=== PATIENT | female | born 1930 | race Caucasian/White ===

== ENCOUNTER 2016-07-19 10:22 | Inpatient (IN) | payer OTHER, MEDICARE ==
[~2016-07-19] VITALS: Ht 162.6 cm; Wt 68.0 kg
[~2016-07-19 10:22] MED LIST: ATOR40TA PO; ECASA PO; MOBI7.5T PO; TIZA4 PO; TYLE3 PO
[2016-07-19 10:26] VITALS: BP 170/77; PULSE 74; RESP 20; TEMP 97.8; O2SAT 91
[2016-07-19] MEDS ORDERED: SODIUM CHLORIDE 0.9% FLUSH 5 ML FLUSH IVF PRN (11:00)
[2016-07-19 11:04] VITALS: BP 140/90; PULSE 68; RESP 18; O2SAT 97
[2016-07-19] MEDS ORDERED: LIPI40TA PO (11:13)
[2016-07-19] MEDS ORDERED: COUM5TAB PO (11:14)
[2016-07-19] MEDS ORDERED: LISI-515 PO (11:15)
--- NOTE | 2016-07-19 11:15 | PD ---
HPI Chief Complaint: Neuro Symptoms/ Deficits Time Seen by Provider: 11:08 Travel History International Travel<30 days: No Contact w/Intl Traveler<30days: No Traveled to known affect area: No History of Present Illness HPI Patient comes emergency Department at the direction of her neurologist Dr. Nieves for admission to the hospital and started on a heparin drip. Patient' s daughters at the bedside reports that patient was discharged from the hospital on Saturday after having a stroke last Saturday. Daughter reports yesterday the patient had some slurring speech that lasted approximately 30 minutes and resolved. Patient had a scheduled MRI of the brain done yesterday as outpatient for follow-up from previous stroke and was found to have a new area that was infarcted. Patient follow-up with Dr. Nieves today and was told to come back to the hospital for admission who started on heparin. Patient denies any pain anywhere. Denies any headache, chest pain shortness of breath abdominal pain, fevers, loss or change in bowel or bladder. Patient reports she still has some left-sided weakness from previous stroke has been walking with a cane. Denies any new sensory deficits, increased weakness, or weakness anywhere else. PFSH Past Medical History Hx Anticoagulant Therapy: Yes Autoimmune Disease: No Blood Disorders: No Cancer: Yes (breast) Cardiovascular Problems: No High Cholesterol: Yes Chemotherapy: Yes (1979 ONE DOSE) Cerebrovascular Accident: Yes Endocrine: No Genitourinary: No Musculoskeletal: No Neurologic: Yes Psychiatric: No Respiratory: No ?: Not Menopausal: Yes Past Surgical History AICD: No Arteriovenous Shunt: No Genitourinary Surgery: No Insulin Pump: No Joint Replacement: No Pacemaker: No Tonsillectomy: Yes Other Surgery: Yes (masectomy left) Social History Alcohol Use: Yes (rare occasions) Tobacco Use: No Substance Use: No Allergies-Medications (Allergen,Severity, Reaction): Coded Allergies: Iodine (Verified Allergy, Severe, Swelling, 07/19/16) Reported Meds & Prescriptions Reported Meds & Active Scripts Active Reported Lisinopril 20 Mg Tab 20 Mg PO DAILY Coumadin (Warfarin) 5 Mg Tab 5 Mg PO DAILY Lipitor (Atorvastatin Calcium) 40 Mg Tab 40 Mg PO HS Review of Systems Except as stated in HPI: all other systems reviewed are Neg Physical Exam Narrative GENERAL: Well-developed, well nourished, in no acute distress, and non-ill appearing. SKIN: Warm and dry. HEAD: Atraumatic. Normocephalic. EYES: Pupils equal and round. EOMI. No scleral icterus. No injection or drainage. ENT: No nasal bleeding or discharge. Mucous membranes pink and moist. NECK: Trachea midline. Supple. No nuclear rigidity. CARDIOVASCULAR: Regular rate and rhythm. No murmur appreciated. RESPIRATORY: No accessory muscle use. No respiratory distress. Clear to auscultation. Breath sounds equal bilaterally. MUSCULOSKELETAL: No obvious deformities. No clubbing. No cyanosis. No edema. Full range of motion. Slight decreased strength noted in left upper and lower extremity compared to right. Slight drooping of the left corner of the mouth compared to the right. NEUROLOGICAL: Awake and alert. No obvious cranial nerve deficits. Motor grossly within normal limits. Normal speech. PSYCHIATRIC: Appropriate mood and affect; insight and judgment normal. Data Data Last Documented VS Vital Signs Date Time Temp Pulse Resp B/P Pulse Ox O2 Delivery O2 Flow Rate FiO2 07/19/16 11:04 68 18 140/90 97 Room Air 07/19/16 10:26 97.8 Orders Complete Blood Count With Diff (07/19/16 10:59) Comprehensive Metabolic Panel (07/19/16 10:59) Prothrombin Time / Inr (Pt) (07/19/16 10:59) Act Partial Throm Time (Ptt) (07/19/16 10:59) Ecg Monitoring (07/19/16 10:59) Iv Access Insert/Monitor (07/19/16 10:59) Oximetry (07/19/16 10:59) Sodium Chloride 0.9% Flush (Ns Flush) (07/19/16 11:00) Heparin Infusion CLAUDIO.Q1H (07/19/16 11:52) Heparin-D5w Inj (Heparin-D5w Inj) (07/19/16 12:00) Heparin-D5w Inj (Heparin-D5w Inj) (07/19/16 13:15) Admit Order (Ed Use Only) (07/19/16 13:32) Labs Laboratory Tests Test 07/19/16 11:20 White Blood Count 6.6 TH/MM3 Red Blood Count 4.67 MIL/MM3 Hemoglobin 14.7 GM/DL Hematocrit 42.6 % Mean Corpuscular Volume 91.3 FL Mean Corpuscular Hemoglobin 31.5 PG Mean Corpuscular Hemoglobin 34.5 % Concent Red Cell Distribution Width 12.5 % Platelet Count 298 TH/MM3 Mean Platelet Volume 7.9 FL Neutrophils (%) (Auto) 55.3 % Lymphocytes (%) (Auto) 33.8 % Monocytes (%) (Auto) 8.4 % Eosinophils (%) (Auto) 1.9 % Basophils (%) (Auto) 0.6 % Neutrophils # (Auto) 3.7 TH/MM3 Lymphocytes # (Auto) 2.2 TH/MM3 Monocytes # (Auto) 0.6 TH/MM3 Eosinophils # (Auto) 0.1 TH/MM3 Basophils # (Auto) 0.0 TH/MM3 CBC Comment DIFF FINAL Differential Comment Prothrombin Time 10.9 SEC Prothromb Time International 1.0 RATIO Ratio Activated Partial 24.3 SEC Thromboplast Time Sodium Level 141 MEQ/L Potassium Level 4.2 MEQ/L Chloride Level 109 MEQ/L Carbon Dioxide Level 22.4 MEQ/L Anion Gap 10 MEQ/L Blood Urea Nitrogen 28 MG/DL Creatinine 0.94 MG/DL Estimat Glomerular Filtration 57 ML/MIN Rate Random Glucose 93 MG/DL Calcium Level 8.6 MG/DL Total Bilirubin 1.3 MG/DL Aspartate Amino Transf 18 U/L (AST/SGOT) Alanine Aminotransferase 26 U/L (ALT/SGPT) Alkaline Phosphatase 57 U/L Total Protein 6.9 GM/DL Albumin 3.9 GM/DL [facility] Medical Decision Making Medical Screen Exam Complete: Yes Emergency Medical Condition: Yes Differential Diagnosis CVA, TIA, electrolyte abnormality, other Narrative Course Patient seen and examined. Labs were obtained and reviewed. Discussed patient with Dr. Patten, who is agreeable with plan of care and disposition. Discussed all findings with patient and her daughter, who is agreeable for admission. All questions were answered. Physician Communication Physician Communication [address] Nieves. He previously spoke with the RN. Wants the patient admitted to the hospitalist and continued on heparin drip, given additional dose of 5 mg Coumadin tonight, every morning INR is, DC heparin for INR greater than 1.9, and hold the Coumadin for greater than 2.7. [address] Carolina, who is agreeable to admit the patient. Diagnosis Primary Impression: CVA (cerebral vascular accident) Qualified Code: I63.9 - Cerebrovascular accident (CVA), unspecified mechanism Admitting Information Admitting Physician Requests: Admit Condition: Stable Rojas Calhoun Jul 19, 2016 11:15
[2016-07-19 11:37] LABS: AUTOMATED NEUTROPHIL # 3.7 TH/MM3 (1.8-7.7); BASOPHIL % 0.6 % (0.0-2.0); EOSINOPHIL # 0.1 TH/MM3 (0-0.4); EOSINOPHIL % 1.9 % (0.0-4.0); HEMATOCRIT 42.6 % (35.0-46.0); HEMO FLAGS DIFF FINAL; LYMPH % 33.8 % (9.0-44.0); LYMPHOCYTE # 2.2 TH/MM3 (1.0-4.8); MEAN CELL VOLUME 91.3 FL (80.0-100.0); MEAN CORPUSCULAR HEMOGLOBIN 31.5 PG (27.0-34.0); MEAN CORPUSCULAR HGB CONC 34.5 % (32.0-36.0); MONO % 8.4 % (0.0-8.0); NEUT % 55.3 % (16.0-70.0); PLATELET COUNT 298 TH/MM3 (150-450); RED BLOOD COUNT 4.67 MIL/MM3 (4.00-5.30); RED CELL DISTRIBUTION WIDTH 12.5 % (11.6-17.2); WHITE BLOOD COUNT 6.6 TH/MM3 (4.0-11.0)
[2016-07-19 11:47] LABS: APTT (PATIENT) 24.3 SEC (24.3-30.1); PROTHROMBIN TIME - PATIENT 10.9 SEC (9.8-11.6)
[2016-07-19 11:49] LABS: ANION GAP 10 MEQ/L (5-15); AST (GOT) 18 U/L (15-37); BICARBONATE 22.4 MEQ/L (21.0-32.0); BLOOD UREA NITROGEN 28 MG/DL (7-18); CHLORIDE 109 MEQ/L (98-107); GLOMERULAR FILTRATION RATE 57 ML/MIN (>89); POTASSIUM 4.2 MEQ/L (3.5-5.1); SODIUM (NA) 141 MEQ/L (136-145)
[2016-07-19 11:52] LABS: ALKALINE PHOSPHATASE 57 U/L (45-117); ALT (GPT) 26 U/L (10-53); TOTAL BILIRUBIN ADULT 1.3 MG/DL (0.2-1.0)
[2016-07-19] MEDS ORDERED: HEPARIN-D5W INJ 250 ML IV SCH (12:00)
[2016-07-19 13:00] VITALS: BP 147/89; PULSE 99; RESP 18; O2SAT 98
[2016-07-19] MEDS ORDERED: WARFARIN SOD 5 MG TAB PO SCH ×2 (13:30→16:00)
--- NOTE | 2016-07-19 13:53 | HHI.HP ---
[facility] Service [facility] Primary Care Physician Sole Ribeiro MD Admission Diagnosis CVA Diagnoses: (1) CVA (cerebral vascular accident) Diagnosis: Principal Chief Complaint: stroke Travel History International Travel<30 Days: No Contact w/Intl Traveler <30 Da: No Traveled to Known Affected Are: No History of Present Illness patient is a 86 y/o female with history of hypertension and recent CVA was sent to ER by her neurologist for new stroke. she says that she was admitted to [facility] last week because of CVA. she was discharged home on saturday and had a follow-up MRI yesterday which reportedly showed an area of new infarct. she had a dose of coumadin last night and had a follow-up with her neurologist this morning who advised her to come to the hospital. she says that she didn't have any new focal weakness but had some slurred speech last night which lasted for thirty minutes. she says that she had drooling at times. she denies any pain. Review of Systems Constitutional: DENIES: Fever, Weight loss, Chills, Night Sweats Eyes: DENIES: Blurred vision, Diplopia, Vision loss, Double Vision Ears, nose, mouth, throat: DENIES: Tinnitus, Vertigo, Throat pain, Epistaxis Respiratory: DENIES: Apneas, Cough, Snoring, Wheezing, Hemoptysis, Sputum production, Shortness of breath Cardiovascular: DENIES: Chest pain, Palpitations, Syncope, Dyspnea on Exertion , PND, Lower Extremity Edema, Orthopnea, Claudication Gastrointestinal: DENIES: Abdominal pain, Black stools, Bloody stools, Constipation, Diarrhea, Nausea, Vomiting, Difficulty Swallowing, Anorexia Genitourinary: DENIES: Urinary frequency, Urgency, Hematuria, Dysuria Musculoskeletal: DENIES: Joint pain, Muscle aches, Stiffness, Joint Swelling Integumentary: DENIES: Rash Neurologic: COMPLAINS OF: Speech Problems, DENIES: Abnormal gait, Headache, Localized weakness, Paresthesias, Seizures, Tremor, Poor Balance Psychiatric: DENIES: Anxiety, Confusion, Mood changes, Depression, Hallucinations, Agitation, Suicidal Ideation, Homicidal Ideation, Delusions Past Family Social History Past Medical History recent CVA hypertension breast cancer Past Surgical History mastectomy Reported Medications Lisinopril 20 Mg Tab 20 Mg PO DAILY Coumadin (Warfarin) 5 Mg Tab 5 Mg PO DAILY Lipitor (Atorvastatin Calcium) 40 Mg Tab 40 Mg PO HS Allergies: Coded Allergies: Iodine (Verified Allergy, Severe, Swelling, 07/19/16) Active Ordered Medications Current Medications IV Flush 2 ml 2 ml UNSCH PRN IVF FLUSH AFTER USING IV ACCESS; Start 07/19/16 at 11:00 Heparin Sodium/ Dextrose 250 ml @ 0 mls/hr TITRATE IV ; Start 07/19/16 at 12:00; Stop 07/19/16 at 13:11; Status DC Heparin Sodium/ Dextrose (Heparin-D5W Inj) 250 ml @ 0 mls/hr TITRATE IV ; Start 07/19/16 at 13:15 Atorvastatin Calcium (Lipitor) 40 mg HS PO ; Start 07/19/16 at 21:00 Warfarin Sodium (Coumadin) 5 mg DAILY PO ; Start 07/19/16 at 13:30; Stop 07/19/16 at 13:34; Status DC Warfarin Sodium 5 mg 5 mg DAILY PO ; Start 07/19/16 at 16:00; Status UNV Pharmacy Profile Note (Coumadin Consult Pharmacy) 0 ml @ 0 mls/hr UNSCH OTHER ; Start 07/19/16 at 13:45; Status UNV Family History cancer. Social History no smoking or drinking. Physical Exam Vital Signs Vital Signs Date Time Temp Pulse Resp B/P Pulse Ox O2 Delivery O2 Flow Rate FiO2 07/19/16 11:04 68 18 140/90 97 Room Air 07/19/16 10:26 97.8 74 20 170/77 91 Room Air Physical Exam GENERAL: This is a well-nourished, well-developed patient, in no apparent distress. SKIN: No rashes, ecchymoses or lesions. Cool and dry. HEAD: Atraumatic. Normocephalic. No temporal or scalp tenderness. EYES: Pupils equal round and reactive. Extraocular motions intact. No scleral icterus. No injection or drainage. ENT: Nose without bleeding, purulent drainage or septal hematoma. Throat without erythema, tonsillar hypertrophy or exudate. Uvula midline. Airway patent. NECK: Trachea midline. No JVD or lymphadenopathy. Supple, nontender, no meningeal signs. CARDIOVASCULAR: Regular rate and rhythm without murmurs, gallops, or rubs. RESPIRATORY: Clear to auscultation. Breath sounds equal bilaterally. No wheezes , rales, or rhonchi. GASTROINTESTINAL: Abdomen soft, non-tender, nondistended. No hepato-splenomegaly , or palpable masses. No guarding. MUSCULOSKELETAL: Extremities without clubbing, cyanosis, or edema. No joint tenderness, effusion, or edema noted. No calf tenderness. Negative Homans sign bilaterally. NEUROLOGICAL: Awake and alert. Cranial nerves II through XII intact. Motor and sensory grossly within normal limits. mild right upper extremity weakness. Laboratory Laboratory Tests Test 07/19/16 11:20 White Blood Count 6.6 Red Blood Count 4.67 Hemoglobin 14.7 Hematocrit 42.6 Mean Corpuscular Volume 91.3 Mean Corpuscular Hemoglobin 31.5 Mean Corpuscular Hemoglobin 34.5 Concent Red Cell Distribution Width 12.5 Platelet Count 298 Mean Platelet Volume 7.9 Neutrophils (%) (Auto) 55.3 Lymphocytes (%) (Auto) 33.8 Monocytes (%) (Auto) 8.4 Eosinophils (%) (Auto) 1.9 Basophils (%) (Auto) 0.6 Neutrophils # (Auto) 3.7 Lymphocytes # (Auto) 2.2 Monocytes # (Auto) 0.6 Eosinophils # (Auto) 0.1 Basophils # (Auto) 0.0 CBC Comment DIFF FINAL Differential Comment Prothrombin Time 10.9 Prothromb Time International 1.0 Ratio Activated Partial 24.3 Thromboplast Time Sodium Level 141 Potassium Level 4.2 Chloride Level 109 Carbon Dioxide Level 22.4 Anion Gap 10 Blood Urea Nitrogen 28 Creatinine 0.94 Estimat Glomerular Filtration 57 Rate Random Glucose 93 Calcium Level 8.6 Total Bilirubin 1.3 Aspartate Amino Transf 18 (AST/SGOT) Alanine Aminotransferase 26 (ALT/SGPT) Alkaline Phosphatase 57 Total Protein 6.9 Albumin 3.9 Result Diagram: 07/19/16 1120 07/19/16 112 Assessment and Plan Assessment and Plan A/P - recurrent CVA ( patient was sent to ER by after she was found to have a new infarct on follow-up MRI) started on heparin drip- will start coumadin with pharmacy consult for coumadin dosing-continue statin will dc heparin drip when INR > 2. consult PT/ST and neurology. the sister is to bring the medical record. -hypertension; resume home meds in am if stable. -DVT prophylaxis; on heparin drip/ coumadin Discussed Condition With ER physician, the patient and her daughter. Physician Certification 2 Midnight Certification Type: Admission for Inpatient Services Order for Inpatient Services The services are ordered in accordance with Medicare regulations or non- Medicare payer requirements, as applicable. In the case of services not specified as inpatient-only, they are appropriately provided as inpatient services in accordance with the 2-midnight benchmark. Estimated LOS (days): 3 days is the estimated time the patient will need to remain in the hospital, assuming treatment plan goals are met and no additional complications. Post-Hospital Plan: Not yet determined Problem Qualifiers (1) CVA (cerebral vascular accident): Qualified Code: I63.9 - Cerebrovascular accident (CVA), unspecified mechanism Harish Carolina MD Jul 19, 2016 13:52
[2016-07-19] MEDS ORDERED: ENALAPRILAT 1.25 MG/ML VIAL IV PUSH PRN (14:00)
[2016-07-19] MEDS ORDERED: SODIUM CHLOR 0.9% 1000 ML INJ 1,000 ML IV SCH (14:00)
[2016-07-19] MEDS: HEPARIN-D5W INJ 250 ML IV SCH (15:04)
[2016-07-19 16:00] VITALS: BP 153/81; PULSE 76; RESP 18; O2SAT 98
[2016-07-19] MEDS: ACETAMINOPHEN 325 MG TAB PO PRN (19:07)
[2016-07-19 19:08] VITALS: BP 153/76
[2016-07-19 20:00] VITALS: BP 151/75; PULSE 66; RESP 18; TEMP 97.6; O2SAT 95
[2016-07-19] MEDS: ATORVASTATIN 40 MG TAB PO SCH (20:56)
[2016-07-20] VITALS: BP 137/72; PULSE 58; RESP 18; TEMP 97.4; O2SAT 95
[2016-07-20 00:08] LABS: APTT (PATIENT) 46.7 SEC (24.3-30.1)
[2016-07-20 04:00] VITALS: BP 152/71; PULSE 95; RESP 18; TEMP 97; O2SAT 96
[2016-07-20 06:40] LABS: APTT (PATIENT) 61.3 SEC (24.3-30.1); INTERNATIONAL NORMALIZED RATIO 1.2 RATIO; PROTHROMBIN TIME - PATIENT 13.2 SEC (9.8-11.6)
[2016-07-20 07:20] VITALS: BP 137/69; PULSE 71; RESP 20; TEMP 96.9; O2SAT 95
--- NOTE | 2016-07-20 08:40 | HHI.PR ---
Objective Vital Signs Date Time Temp Pulse Resp B/P Pulse Ox O2 Delivery O2 Flow Rate FiO2 07/20/16 07:20 96.9 71 20 137/69 95 07/20/16 04:00 97.0 95 18 152/71 96 07/20/16 00:00 97.4 58 18 137/72 95 07/19/16 20:00 97.6 66 18 151/75 95 07/19/16 19:08 79 18 153/76 98 07/19/16 16:00 76 18 153/81 98 Room Air 07/19/16 13:00 99 18 147/89 98 Room Air 07/19/16 11:04 68 18 140/90 97 Room Air 07/19/16 10:26 97.8 74 20 170/77 91 Room Air I/O 07/19/16 07/19/16 07/19/16 07/20/16 07/20/16 07/20/16 07:00 15:00 23:00 07:00 15:00 23:00 Intake Total 240 ml 240 ml 96 ml Balance 240 ml 240 ml 96 ml Intake Oral 240 ml 240 ml IV Total 96 ml # Voids 1 1 Result Diagram: 07/19/16 1120 07/19/16 1120 Other Results inr 1.2 Objective Remarks awake alert vff speech nl pupil= 5/5 face sym Assessment and Plan Assessment and Plan imp inr 1.2 give 7.5 coumadin today can dc when inr 2-3 will need daily inr as it goes up oob ok some eye pain last three days only at noc some photophobia none now observe that over weekend Ernesto Nieves MD Jul 20, 2016 08:40
--- NOTE | 2016-07-20 08:59 | MB ---
cc: KARINA BURGER DATE OF CONSULTATION 07/19/2016 DATE OF 1930 HISTORY The patient is an 86-year-old woman with a history of remote breast cancer and hypercholesterolemia. I had seen her in October of last year having some chest pain, vision went black and white and then came back after 40-minute. She had a tiny right parietal stroke and an old right cerebellar and left basal ganglia and right thalamic old strokes. MRA [place] looked okay. Aspirin was started and statin was started, but then her LDL was only 87, so she was taken off of statin. A 30-day monitor was negative. MRA of the neck showed a 50% left internal carotid artery stenosis, a 35% left subclavian stenosis. Carotid ultrasound was negative. Left vertebral artery was slightly dominant. Echocardiogram was normal. B12 was 244. She was put on aspirin. She had some episodes of feeling hot standing and had to sit-down. A 30-day monitor was negative. She was on B12 and fish oil. She had some slight memory problems and last week she was in the office getting some memory testing when she suddenly had a left facial droop, some slurred speech, went to the hospital had multiple right MCA infarcts. She was put on Plavix. Her carotid ultrasound showed still some mild to moderate disease on the left, normal on the right. MRA [place] was normal. I reviewed those films today. MRI showed multiple acute infarcts. Yesterday, she had an episode where her speech again became slurred for about 30 minutes and we did an MRI yesterday which showed some increased size of that infarct on the right possibly a new infarct there. Her echocardiogram in the hospital was normal. Her UA, CBC and BMP were normal. LDL was normal. UA was negative. MEDICATIONS 1. Lisinopril 10 mg a day 2. She was just started on Coumadin last night 3. The aspirin and Plavix was stopped yesterday. 4. She is on B12 pills. 5. Atorvastatin 40 mg a day ALLERGIES NO KNOWN DRUG ALLERGIES. FAMILY HISTORY Negative cancer, seizure, or stroke. SOCIAL HISTORY Not a smoker. Not a drinker. Lives by herself. Daughter is in town now. PHYSICAL EXAM VITAL SIGNS: Blood pressure 109/69, 88. NECK: There were no carotid bruits. HEART: Regular rhythm. I did not detect a murmur. NEUROLOGIC: Pupils are equal, visual cadena are full. Extraocular intact without nystagmus. Face symmetric. Tongue was midline. She had normal strength in the upper and lower extremities bilaterally. Gait is steady. Speech is fluent, she is not aphasic. She was alert and oriented. There was no visual or sensory neglect. [place] was normal on the bilateral upper and lower extremities and face. IMPRESSION Multiple strokes in the past, a recent other stroke. She had an episode yesterday of some more slurred speech and I am worried that she could have had another stroke yesterday or at least a TIA. We are going to admit her, put her on IV heparin, no bolus ever. Continue her Coumadin. Get her INR therapeutic and then she can be discharged. I did discuss the risk of bleeding including into the brain on the Coumadin and the family is okay with going ahead as is the patient and starting her on the IV heparin. MD PAU Ozuna/FAZAL /9:39 AM /8:51 AM
--- NOTE | 2016-07-20 09:44 | HHI.PR ---
Subjective Remarks resting comfortably with no distress. denies pain. no new complaints. Objective Vitals Vital Signs Date Time Temp Pulse Resp B/P Pulse Ox O2 Delivery O2 Flow Rate FiO2 07/20/16 07:20 96.9 71 20 137/69 95 07/20/16 04:00 97.0 95 18 152/71 96 07/20/16 00:00 97.4 58 18 137/72 95 07/19/16 20:00 97.6 66 18 151/75 95 07/19/16 19:08 79 18 153/76 98 07/19/16 16:00 76 18 153/81 98 Room Air 07/19/16 13:00 99 18 147/89 98 Room Air 07/19/16 11:04 68 18 140/90 97 Room Air 07/19/16 10:26 97.8 74 20 170/77 91 Room Air I/O 07/19/16 07/19/16 07/19/16 07/20/16 07/20/16 07/20/16 07:00 15:00 23:00 07:00 15:00 23:00 Intake Total 240 ml 240 ml 96 ml Balance 240 ml 240 ml 96 ml Intake Oral 240 ml 240 ml IV Total 96 ml # Voids 1 1 Result Diagram: 07/19/16 1120 07/19/16 1120 Objective Remarks GENERAL: This is a well-nourished, well-developed patient, in no apparent distress. CARDIOVASCULAR: Regular rate and regular rhythm without murmurs, gallops, or rubs. RESPIRATORY: Clear to auscultation. Breath sounds equal bilaterally. No wheezes , rales, or rhonchi. GASTROINTESTINAL: Abdomen soft, non-tender, nondistended. Normal, active bowel sounds MUSCULOSKELETAL: Extremities without clubbing, cyanosis, or edema. NEURO: Alert & Oriented x4 to person, place, time, situation. Moves all ext x4 Procedures none Medications and IVs Current Medications IV Flush 2 ml 2 ml UNSCH PRN IVF FLUSH AFTER USING IV ACCESS; Start 07/19/16 at 11:00 Heparin Sodium/ Dextrose 250 ml @ 0 mls/hr TITRATE IV ; Start 07/19/16 at 12:00; Stop 07/19/16 at 13:11; Status DC Heparin Sodium/ Dextrose (Heparin-D5W Inj) 250 ml @ 0 mls/hr TITRATE IV Last administered on 07/19/16 15:04; Start 07/19/16 at 13:15 Atorvastatin Calcium (Lipitor) 40 mg HS PO Last administered on 07/19/16 20:56 ; Start 07/19/16 at 21:00 Warfarin Sodium (Coumadin) 5 mg DAILY PO ; Start 07/19/16 at 13:30; Stop 07/19/16 at 13:34; Status DC Warfarin Sodium 5 mg 5 mg DAILY PO Last administered on 07/19/16 17:55; Start 07/19/16 at 16:00; Stop 07/20/16 at 08:46; Status DC Pharmacy Profile Note 0 ml @ 0 mls/hr UNSCH OTHER ; Start 07/19/16 at 13:45 Sodium Chloride (NS 1000 ml Inj) 1,000 ml @ 80 mls/hr [id number] IV Last administered on 07/19/16 15:27; Start 07/19/16 at 14:00 Enalaprilat (Vasotec Inj) 1.25 mg Q8H PRN IV PUSH SBP>200, DBP>100; Start 07/19 at 14:00 Acetaminophen (Tylenol) 650 mg Q4H PRN PO FEVER/HEADACHE Last administered on 19:07; Start 07/19/16 at 18:30 Warfarin Sodium (Coumadin) 5 mg DAILY@1600 PO ; Start 07/21/16 at 16:00 Warfarin Sodium (Coumadin) 7.5 mg ONCE PO ; Start 07/20/16 at 16:00; Stop at 16:01 A/P Assessment and Plan A/p - recurrent CVA ( patient was sent to ER by after she was found to have a new infarct on follow-up MRI- of note had a recent CVA and was discharged home from the hospital a few days ago) started on heparin drip- continue coumadin . consulted for coumadin dosing- continue statin will dc heparin drip when INR > 2. consulted PT/ST . neurology following. -hypertension; hold home BP meds today- vasotec prn- will dc IVF today. -DVT prophylaxis; on heparin drip/ coumadin Harish Carolina MD Jul 20, 2016 09:44
[2016-07-20 11:30] VITALS: BP 153/81; PULSE 71; RESP 19; TEMP 96.6; O2SAT 96
--- NOTE | 2016-07-20 13:31 | EKG ---
Date Performed: 07/20/2016 Time Performed: 10:16:39 PTAGE: 86 years EKG: Sinus rhythm WITH MARKED SINUS ARRHYTHMIA BORDERLINE ECG PREVIOUS TRACING : 11/09/2015 18.44 Since previous tracing, no significant change noted DOCTOR: Genesis Coleman Interpretating Date/Time 07/20/2016 13:30:42
[2016-07-20] MEDS ORDERED: SODIUM CHLOR 0.9% 1000 ML INJ 1,000 ML IV ONE (14:00)
[2016-07-20 15:20] VITALS: BP 164/76; PULSE 72; RESP 19; TEMP 97.5; O2SAT 94
[2016-07-20] MEDS ORDERED: WARFARIN SOD 7.5 MG TAB PO SCH (16:00)
[2016-07-20 20:00] VITALS: BP 155/70; PULSE 68; RESP 24; TEMP 96.5; O2SAT 93
[2016-07-20] MEDS: ATORVASTATIN 40 MG TAB PO SCH (20:50)
[2016-07-20] MEDS: ACETAMINOPHEN 325 MG TAB PO PRN (22:51)
[2016-07-20] MEDS: HEPARIN-D5W INJ 250 ML IV SCH (22:55)
[2016-07-21 08:37] VITALS: BP 139/63; PULSE 63; RESP 18; TEMP 96.7; O2SAT 95
[2016-07-21 08:48] LABS: INTERNATIONAL NORMALIZED RATIO 2.1 RATIO; PROTHROMBIN TIME - PATIENT 24.2 SEC (9.8-11.6)
--- NOTE | 2016-07-21 11:02 | HHI.PR ---
Subjective Remarks resting comfortably with no distress. has mild pain to the right arm. otherwise no other complaints. Objective Vitals Vital Signs Date Time Temp Pulse Resp B/P Pulse Ox O2 Delivery O2 Flow Rate FiO2 07/21/16 08:37 96.7 63 18 139/63 95 07/20/16 20:00 96.5 68 24 155/70 93 07/20/16 15:20 97.5 72 19 164/76 94 07/20/16 11:30 96.6 71 19 153/81 96 I/O 07/20/16 07/20/16 07/20/16 07/21/16 07/21/16 07/21/16 07:00 15:00 23:00 07:00 15:00 23:00 Intake Total 240 ml 96 ml 606 ml Balance 240 ml 96 ml 606 ml Intake Oral 240 ml IV Total 96 ml 606 ml # Voids 1 2 6 # Bowel Movements 0 Result Diagram: 07/19/16 1120 07/19/16 1120 Objective Remarks GENERAL: This is a well-nourished, well-developed patient, in no apparent distress. CARDIOVASCULAR: Regular rate and regular rhythm without murmurs, gallops, or rubs. RESPIRATORY: Clear to auscultation. Breath sounds equal bilaterally. No wheezes , rales, or rhonchi. GASTROINTESTINAL: Abdomen soft, non-tender, nondistended. Normal, active bowel sounds MUSCULOSKELETAL: Extremities without clubbing, cyanosis, or edema. NEURO: Alert & Oriented x4 to person, place, time, situation. Moves all ext x4 Procedures none Medications and IVs Current Medications IV Flush 2 ml 2 ml UNSCH PRN IVF FLUSH AFTER USING IV ACCESS; Start 07/19/16 at 11:00 Heparin Sodium/ Dextrose 250 ml @ 0 mls/hr TITRATE IV ; Start 07/19/16 at 12:00; Stop 07/19/16 at 13:11; Status DC Heparin Sodium/ Dextrose (Heparin-D5W Inj) 250 ml @ 0 mls/hr TITRATE IV Last administered on 07/20/16 22:55; Start 07/19/16 at 13:15 Atorvastatin Calcium (Lipitor) 40 mg HS PO Last administered on 07/20/16 20:50 ; Start 07/19/16 at 21:00 Warfarin Sodium (Coumadin) 5 mg DAILY PO ; Start 07/19/16 at 13:30; Stop 07/19/16 at 13:34; Status DC Warfarin Sodium 5 mg 5 mg DAILY PO Last administered on 07/19/16 17:55; Start 07/19/16 at 16:00; Stop 07/20/16 at 08:46; Status DC Pharmacy Profile Note 0 ml @ 0 mls/hr UNSCH OTHER ; Start 07/19/16 at 13:45 Sodium Chloride (NS 1000 ml Inj) 1,000 ml @ 80 mls/hr [id number] IV Last administered on 07/19/16 15:27; Start 07/19/16 at 14:00; Stop 07/20/16 at 09:46; Status DC Enalaprilat (Vasotec Inj) 1.25 mg Q8H PRN IV PUSH SBP>200, DBP>100; Start 07/19 at 14:00 Acetaminophen (Tylenol) 650 mg Q4H PRN PO FEVER/HEADACHE Last administered on 22:51; Start 07/19/16 at 18:30 Warfarin Sodium (Coumadin) 5 mg DAILY@1600 PO ; Start 07/21/16 at 16:00; Stop 07/21/16 at 16:00; Status DC Warfarin Sodium 7.5 mg 7.5 mg ONCE PO Last administered on 07/20/16 16:52; Start 07/20/16 at 16:00; Stop 07/20/16 at 16:01; Status DC Sodium Chloride (NS 1000 ml Inj) 1,000 ml @ 60 mls/hr [id number] ONCE IV Last administered on 07/20/16 14:54; Start 07/20/16 at 14:00; Stop 07/21/16 at 06:39; Status DC Warfarin Sodium (Coumadin) 5 mg DAILY@1600 PO ; Start 07/22/16 at 16:00 A/P Assessment and Plan A/p - recurrent CVA ( patient was sent to ER by after she was found to have a new infarct on follow-up MRI- of note had a recent CVA and was discharged home from the hospital a few days ago) now on coumadin with therapeutic INR- stop heparin drip .continue statin neurology following. -hypertension; resume lisinopril- will monitor. -DVT prophylaxis; on coumadin Discharge Planning dc home within the next 24-48 hrs if stable. case management for [facility]. Harish Carolina MD Jul 21, 2016 11:02
--- NOTE | 2016-07-21 11:04 | HHI.FF ---
Face to Face Verification Diagnosis: (1) CVA (cerebral vascular accident) Physical Therapy Order: Evaluate and Treat Home Health Nursing Order: Medical education Signs/symptoms of disease process Nursing assessment with vital signs Instructions: PT/INR monitoring. I have seen patient Stephany Taylor on 07/21/16. My clinical findings support the need for the requested home health care services because: Ltd mobility - disease progression I certify that my clinical findings support that this patient is homebound because: Unsteady gait/balance Harish Carolina MD Jul 21, 2016 11:04
[2016-07-21 12:15] VITALS: BP 144/67; PULSE 66; RESP 18; TEMP 97.4; O2SAT 94
[2016-07-21] MEDS: LISINOPRIL 10 MG TAB PO SCH (12:15)
[2016-07-21] MEDS ORDERED: WARFARIN SOD 5 MG TAB PO SCH (16:00)
[2016-07-21 16:49] VITALS: BP 123/58; PULSE 69; RESP 18; TEMP 97; O2SAT 94
[2016-07-21 20:00] VITALS: BP 130/63; PULSE 80; RESP 20; TEMP 97.9; O2SAT 94
--- NOTE | 2016-07-21 22:08 | HHI.PR ---
Review/Management Diagnosis H/o ischemic strokes right parietal, cerebellar , &left basal ganglia Plan [place] Q4h Coumadin 5mg daily D/C ed Heparin Patient is stable from neurologic stand point, can be released if INR remains therapeutic to follow up as outpatient with Dr. Nieves, Diagnosis/Plan: Subjective Subjective Comments No acute events reported No headache Injected right eye INR is therapeutic today D/C heparin and continue oral anticoagulation Active Medications Current Medications Medications (Trade) Dose Ordered Sig/Reyna Route Start Time Stop Time Status Last Admin (NS Flush) 2 ml UNSCH PRN IVF 07/19/16 11:00 Atorvastatin Calcium 40 mg 40 mg HS PO 07/19/16 21:00 07/20/16 20:50 (Coumadin Consult Pharmacy) 0 ml @ 0 mls/hr UNSCH OTHER 07/19/16 13:45 (Vasotec Inj) 1.25 mg Q8H PRN IV PUSH 07/19/16 14:00 (Tylenol) 650 mg Q4H PRN PO 07/19/16 18:30 07/20/16 22:51 (Coumadin) 5 mg DAILY@1600 PO 07/22/16 16:00 (Prinivil) 10 mg DAILY PO 07/21/16 11:15 07/21/16 12:15 Allergies Allergies Coded Allergies Iodine (Verified Allergy, Severe, Swelling, 07/19/16) Exam I&O / VS 07/20/16 07/20/16 07/21/16 15:00 23:00 07:00 Intake Total 96 ml 606 ml Balance 96 ml 606 ml IV Total 96 ml 606 ml # Voids 2 6 # Bowel Movements 0 Vital Signs Date Time Temp Pulse Resp B/P Pulse Ox O2 Delivery O2 Flow Rate FiO2 07/21/16 20:00 97.9 80 20 130/63 94 07/21/16 16:49 97.0 69 18 123/58 94 07/21/16 12:15 97.4 66 18 144/67 94 07/21/16 08:37 96.7 63 18 139/63 95 General: Alert and Oriented, No acute distress Eye: PERRL, EOMI, Other (injected right eye) Respiratory: Lungs CTA, Non-labored respirations Cardiology: Normal rate, No murmur Musculoskeletal: ROM, Tenderness Neurologic: Alert, Oriented, Normal sensory, Normal motor, No focal defects, CN II-XII intact, Normal DTR's, Other Psychiatric: Cooperative, Appropriate mood & affect Objective Micro and Labs Laboratory Tests Test 07/21/16 07:38 Prothrombin Time 24.2 Prothromb Time International 2.1 Ratio Activated Partial 87.0 Thromboplast Time Adalgisa Rios MD Jul 21, 2016 22:08
[2016-07-21] MEDS: ATORVASTATIN 40 MG TAB PO SCH (22:09)
[2016-07-21] MEDS: ACETAMINOPHEN 325 MG TAB PO PRN (23:23)
[2016-07-22] VITALS: BP 139/65; PULSE 69; RESP 20; TEMP 96.7; O2SAT 95
[2016-07-22 04:00] VITALS: BP 140/69; PULSE 73; RESP 20; TEMP 95.3; O2SAT 95
[2016-07-22] MEDS: LISINOPRIL 10 MG TAB PO SCH (08:00)
[2016-07-22 08:30] VITALS: BP 126/57; PULSE 65; RESP 18; TEMP 97; O2SAT 94
--- NOTE | 2016-07-22 09:27 | HHI.PR ---
Subjective Remarks resting comfortably with no distress. no new complaints. d/w the RN and no acute issues over night. Objective Vitals Vital Signs Date Time Temp Pulse Resp B/P Pulse Ox O2 Delivery O2 Flow Rate FiO2 07/22/16 08:30 97.0 65 18 126/57 94 07/22/16 04:00 95.3 73 20 140/69 95 07/22/16 00:00 96.7 69 20 139/65 95 07/21/16 20:00 97.9 80 20 130/63 94 07/21/16 16:49 97.0 69 18 123/58 94 07/21/16 12:15 97.4 66 18 144/67 94 I/O 07/21/16 07/21/16 07/21/16 07/22/16 07/22/16 07/22/16 07:00 15:00 23:00 07:00 15:00 23:00 Intake Total 720 ml 240 ml 120 ml Balance 720 ml 240 ml 120 ml Intake Oral 720 ml 240 ml 120 ml # Voids 6 3 0 0 # Bowel Movements 0 0 Result Diagram: 07/19/16 1120 07/19/16 1120 Objective Remarks GENERAL: This is a well-nourished, well-developed patient, in no apparent distress. CARDIOVASCULAR: Regular rate and regular rhythm without murmurs, gallops, or rubs. RESPIRATORY: Clear to auscultation. Breath sounds equal bilaterally. No wheezes , rales, or rhonchi. GASTROINTESTINAL: Abdomen soft, non-tender, nondistended. Normal, active bowel sounds MUSCULOSKELETAL: Extremities without clubbing, cyanosis, or edema. NEURO: Alert & Oriented x4 to person, place, time, situation. Moves all ext x4 Procedures none Medications and IVs Current Medications IV Flush 2 ml 2 ml UNSCH PRN IVF FLUSH AFTER USING IV ACCESS; Start 07/19/16 at 11:00 Heparin Sodium/ Dextrose 250 ml @ 0 mls/hr TITRATE IV ; Start 07/19/16 at 12:00; Stop 07/19/16 at 13:11; Status DC Heparin Sodium/ Dextrose (Heparin-D5W Inj) 250 ml @ 0 mls/hr TITRATE IV Last administered on 07/20/16t 22:55; Start 07/19/16 at 13:15; Stop 07/21/16 at 10:58; Status DC Atorvastatin Calcium (Lipitor) 40 mg HS PO Last administered on 07/21/16 22:09 ; Start 07/19/16 at 21:00 Warfarin Sodium (Coumadin) 5 mg DAILY PO ; Start 07/19/16 at 13:30; Stop 07/19/16 at 13:34; Status DC Warfarin Sodium 5 mg 5 mg DAILY PO Last administered on 07/19/16 17:55; Start 07/19/16 at 16:00; Stop 07/20/16 at 08:46; Status DC Pharmacy Profile Note 0 ml @ 0 mls/hr UNSCH OTHER ; Start 07/19/16 at 13:45 Sodium Chloride (NS 1000 ml Inj) 1,000 ml @ 80 mls/hr [id number] IV Last administered on 07/19/16 15:27; Start 07/19/16 at 14:00; Stop 07/20/16 at 09:46; Status DC Enalaprilat (Vasotec Inj) 1.25 mg Q8H PRN IV PUSH SBP>200, DBP>100; Start 07/19 at 14:00 Acetaminophen (Tylenol) 650 mg Q4H PRN PO FEVER/HEADACHE Last administered on 23:23; Start 07/19/16 at 18:30 Warfarin Sodium (Coumadin) 5 mg DAILY@1600 PO ; Start 07/21/16 at 16:00; Stop 07/21/16 at 16:00; Status DC Warfarin Sodium 7.5 mg 7.5 mg ONCE PO Last administered on 07/20/16 16:52; Start 07/20/16 at 16:00; Stop 07/20/16 at 16:01; Status DC Sodium Chloride (NS 1000 ml Inj) 1,000 ml @ 60 mls/hr [id number] ONCE IV Last administered on 07/20/16 14:54; Start 07/20/16 at 14:00; Stop 07/21/16 at 06:39; Status DC Warfarin Sodium (Coumadin) 5 mg DAILY@1600 PO ; Start 07/22/16 at 16:00 Lisinopril (Prinivil) 10 mg DAILY PO Last administered on 07/22/16 08:00; Start 07/21/16 at 11:15 A/P Assessment and Plan A/p - recurrent CVA ( patient was sent to ER by after she was found to have a new infarct on follow-up MRI- of note had a recent CVA and was discharged home from the hospital a few days ago) now on coumadin with therapeutic INR- stopped heparin drip .continue statin neurology follow-up appreciated. -hypertension; resumed lisinopril- will monitor. -DVT prophylaxis; on coumadin Discharge Planning likely dc home later today if INR is therapeutic. see med list. f/u; pcp and neurology. d/w the patient and Harish Wilson MD Jul 22, 2016 09:27
[2016-07-22] MEDS ORDERED: LISI10TA3 PO (09:28)
[2016-07-22] MEDS ORDERED: COUM5TAB PO (09:28)
--- NOTE | 2016-07-22 09:29 | HHI.DCPOC ---
Discharge Care Plan Diagnosis: (1) CVA (cerebral vascular accident) Your Health Problems Are: Difficulty with ADL Goals to Promote Your Health * To prevent worsening of your condition and complications * To maintain your health at the optimal level Directions to Meet Your Goals Take your medications as prescribed Follow your dietary instruction Follow activity as directed Keep your appointments as scheduled Take your immunizations and boosters as scheduled If your symptoms worsen call your PCP, if no PCP go to Urgent Care Center or Emergency Room Smoking is Dangerous to Your Health. Avoid second hand smoke Call the 24-hour hour crisis hotline for domestic abuse at Harish Carolina MD Jul 22, 2016 09:29
--- NOTE | 2016-07-22 09:29 | HHI.DS ---
Discharge Summary Admission Date Jul 19, 2016 at 13:34 Discharge Date: Jul 22, 2016 Admitting Diagnosis CVA (1) CVA (cerebral vascular accident) ICD Code: I63.9 Diagnosis: Principal Procedures none Brief History - From Admission patient is a 86 y/o female with history of hypertension and recent CVA was sent to ER by her neurologist for new stroke. she says that she was admitted to [facility] last week because of CVA. she was discharged home on saturday and had a follow-up MRI yesterday which reportedly showed an area of new infarct. she had a dose of coumadin last night and had a follow-up with her neurologist this morning who advised her to come to the hospital. she says that she didn't have any new focal weakness but had some slurred speech last night which lasted for thirty minutes. she says that she had drooling at times. she denies any pain. CBC/BMP: 07/19/16 1120 07/19/16 1120 Significant Findings Laboratory Tests Test 07/19/16 07/19/16 07/20/16 07/20/16 11:20 23:02 06:14 09:50 Monocytes (%) (Auto) 8.4 % (0.0-8.0) Chloride Level 109 MEQ/L (98-107) Blood Urea Nitrogen 28 MG/DL (7-18) Estimat Glomerular Filtration 57 ML/MIN (>89) Rate Total Bilirubin 1.3 MG/DL (0.2-1.0) Activated Partial 46.7 SEC 61.3 SEC Thromboplast Time (24.3-30.1) (24.3-30.1) Prothrombin Time 13.2 SEC (9.8-11.6) Troponin I LESS THAN 0.02 NG/ML (0.02-0.05) Test 07/21/16 07:38 Prothrombin Time 24.2 SEC (9.8-11.6) Activated Partial 87.0 SEC Thromboplast Time (24.3-30.1) PE at Discharge GENERAL: This is a well-nourished, well-developed patient, in no apparent distress. CARDIOVASCULAR: Regular rate and regular rhythm without murmurs, gallops, or rubs. RESPIRATORY: Clear to auscultation. Breath sounds equal bilaterally. No wheezes , rales, or rhonchi. GASTROINTESTINAL: Abdomen soft, non-tender, nondistended. Normal, active bowel sounds MUSCULOSKELETAL: Extremities without clubbing, cyanosis, or edema. NEURO: Alert & Oriented x4 to person, place, time, situation. Moves all ext x4 Hospital Course - recurrent CVA ( patient was sent to ER by after she was found to have a new infarct on follow-up MRI- of note had a recent CVA and was discharged home from the hospital a few days ago) now on coumadin with therapeutic INR- stopped heparin drip .continue statin neurology follow-up appreciated. -hypertension; resumed lisinopril- will monitor. -DVT prophylaxis; on coumadin Pt Condition on Discharge: Good Discharge Disposition: Disch w/ Home Health Serv Discharge Time: <= 30 minutes Discharge Instructions DIET: Follow Instructions for: Heart Healthy Diet Activities you can perform: Regular-No Restrictions Follow up Referrals: Neurology PCP Follow-up New Orders: PT/INR New Medications: Lisinopril (Lisinopril) 10 Mg Tab 10 MG PO DAILY hypertension Days 30 Ref 0 TAB Warfarin (Coumadin) 5 Mg Tab 5 MG PO DAILY@1600 cva Days 30 Ref 0 TAB Continued Medications: Atorvastatin (Lipitor) 40 Mg Tab 40 MG PO HS Cholesterol Management #30 Ref 0 TAB Warfarin (Coumadin) 5 Mg Tab 5 MG PO DAILY Blood Clot Prevention #30 Ref 0 TAB Discontinued Medications: Lisinopril (Lisinopril) 20 Mg Tab 20 MG PO DAILY #30 Ref 0 TAB Harish Carolina MD Jul 22, 2016 09:29
[2016-07-22 09:57] LABS: INTERNATIONAL NORMALIZED RATIO 2.4 RATIO; PROTHROMBIN TIME - PATIENT 27.1 SEC (9.8-11.6)
[2016-07-22 12:46] VITALS: BP 130/68; PULSE 75; RESP 18; TEMP 97.2; O2SAT 93
[2016-07-22] MEDS ORDERED: WARFARIN SOD 5 MG TAB PO SCH (16:00)
== END 2016-07-22 13:14 | disposition home health service (06) | DRG 66 ==
LOC: NEPC 10:22 → NEDA 13:34 → N05B 19:04
PROVIDERS: ADMIT Internal Medicine; ATTEND Internal Medicine
DX: I63.9 Cerebral infarction, unspecified (principal); I10 Essential (primary) hypertension; Z86.73 Personal history of transient ischemic attack (TIA), and cerebral infarction without residual deficits; Z85.3 Personal history of malignant neoplasm of breast; E78.00 Pure hypercholesterolemia, unspecified; I65.22 Occlusion and stenosis of left carotid artery; I70.8 Atherosclerosis of other arteries
CPT/HCPCS: 76937; 80053; 84484; 85025; 85610; 85730; 93005; 99284; J1644; J7030

== ENCOUNTER 2018-01-01 14:54 | Observation (INO) ==
--- NOTE | 2018-01-01 15:29 | CT ---
EXAM DATE: 01/01/2018 3:18 PM EDT AGE/SEX: 87 years / Female INDICATIONS: Stroke alert, altered mental status, weakness in extremities. CLINICAL DATA: This is the patient's initial encounter. Patient reports that signs and symptoms have been present for 1 day and indicates a pain score of Nonresponsive. MEDICAL/SURGICAL HISTORY: Non-responsive. Non-responsive. RADIATION DOSE: 31.61 CTDI (mGy) COMPARISON: [facility], CT BRAIN W/O CONTRAST, 11/09/2015. . TECHNIQUE: CT of the head without contrast. Using automated exposure control and adjustment of the mA and/or kV according to patient size, radiation dose was kept as low as reasonably achievable to ob tain optimal diagnostic quality images. DICOM format image data is available electronically for revi ew and comparison. FINDINGS: Cerebrum: Focal loss of weaver-white matter differentiation in the right parietal high convexities. Mi ld to moderate diffuse cerebral atrophy. The ventricles are normal for degree of atrophy. No evidence of midline shift, mass lesion, hemorrhage or acute infarction. No extraaxial fluid collections are seen. Posterior Fossa: The cerebellum and brainstem are intact. The 4th ventricle is midline. The cerebe llopontine angle is unremarkable. Extracranial: The visualized portion of the orbits is intact. Skull: The calvaria is intact. No evidence of skull fracture. CONCLUSION: 1. Very small focal loss of weaver-white matter differentiation in the right parietal high convexities . Given lack of recent comparisons, this may be subacute/chronic in etiology. MRI examination may be performed for further evaluation if clinically warranted. 2. Otherwise, no acute intracranial abnormality. Specifically, no evidence for intracranial hemorrha ge. Report was personally called to Dr. Madison at 1525 PM. Electronically signed by: Jae Vasques MD 01/01/2018 3:28 PM EDT
[2018-01-01] MEDS ORDERED: niCARdipine Inj 25 MG in Sodium Chlor 0.9% Inj 240 ML IV.CONT PRN (15:32)
[2018-01-01 15:45] LABS: Baso # (Auto) 0.1 th/mm3 (0.0-0.2); Baso % (Auto) 0.9 % (0.0-2.0); Eos % (Auto) 0.5 % (0.0-4.0); Hematocrit 41.7 % (35.0-46.0); Hemoglobin 14.2 gm/dL (11.6-15.3); Lymph # (Auto) 1.5 th/mm3 (1.0-4.8); Lymph % (Auto) 20.4 % (9.0-44.0); Mean Corpuscular HGB Conc 34.1 % (32.0-36.0); Mean Corpuscular Hemoglobin 30.9 pg (27.0-34.0); Mean Corpuscular Volume 90.7 fL (80.0-100.0); Mono # (Auto) 0.6 th/mm3 (0.0-0.9); Mono % (Auto) 8.3 % (0.0-8.0); Neut # (Auto) 5.3 th/mm3 (1.8-7.7); Neut % (Auto) 69.9 % (16.0-70.0); Platelet Count 299 th/mm3 (150-450); Red Cell Distribution Width 12.7 % (11.6-17.2); White Blood Count 7.5 th/mm3 (4.0-11.0)
[2018-01-01 15:48] LABS: Activated Partial Thrombo Time 31.3 sec (24.3-30.1); INR 1.8 Ratio; Prothrombin Time 18.7 sec (9.8-11.6)
--- NOTE | 2018-01-01 16:04 | ED ---
HPI General Chief Complaint: Dizziness Stated Complaint: Poss stroke / bp Source: patient and family Mode of arrival: wheelchair Limitations: no limitations History of Present Illness HPI Narrative: According to daughter the patient has had dizziness and weakness generalize since this morning, and just wanted to sleep.. However the patient was able to go to her air tube releaser appointment...AFTER WHICH SHE WAS SENT TO ER DUE TO HYPERTENSION MD complaint: dizziness Timing: gradual onset History of similar episodes: Yes History of trauma: No Severity: moderate Relieving factors: nothing Exacerbating factors: nothing Associated symptoms: denies other symptoms Related Data Home Medications Medication Instructions Recorded Confirmed atorvastatin 40 mg PO DAILY 01/01/18 01/01/18 temazepam 30 mg PO HS 01/01/18 01/01/18 warfarin 3 mg PO DAILY 01/01/18 01/01/18 warfarin 4 mg PO EVERY OTHER DAY 01/01/18 01/01/18 Previous Rx's Medication Instructions Recorded amlodipine [Norvasc] 10 mg PO DAILY #30 tab 01/03/18 lisinopril-hydrochlorothiazide 1 tab PO DAILY #30 tab 01/03/18 Allergies Allergy/AdvReac Type Severity Reaction Status Date / Time iodine Allergy Severe Swelling Verified 01/01/18 15:40 potassium iodide Allergy Severe Swelling Verified 01/01/18 15:40 povidone-iodine Allergy Severe Swelling Verified 01/01/18 15:40 sodium iodide Allergy Severe Swelling Verified 01/01/18 15:40 sodium iodide Allergy Severe Swelling Verified 01/01/18 15:40 Review of Systems Except as stated in HPI: all other systems reviewed are negative PMFSH History History Provided By: Patient Medical History Medical History Breast cancer (Acute) Depressed (Acute) Dorsalgia (Acute) Hyperlipemia (Acute) Insomnia (Acute) Stroke (Acute) Surgical History Surgical History H/O mastectomy (Acute) Social History Social History Substance History: No History of Abuse Second Hand Smoke Exposure: No Smoking Status: Never smoker How Often Do You Have a Drink Containing Alcohol: 2 to 3 times a week Recent Travel in [facility] within the Last 8 Weeks: No Recent Out of Country Travel within the Last 8 Weeks: No Immunization History Tetanus Immunization: Unsure Hx Influenza Vaccine This Season: Yes Exam Narrative Exam Narrative: GENERAL: Well-nourished, well-developed patient in no apparent distress. SKIN: Warm and dry. HEAD: Atraumatic. Normocephalic. EYES: Pupils equal and round. No scleral icterus. No injection or drainage. ENT: No nasal bleeding or discharge. Mucous membranes pink and moist. NECK: Trachea midline. No JVD. CARDIOVASCULAR: Regular rate and rhythm. no rubs or gallops RESPIRATORY: No accessory muscle use. Clear to auscultation. Breath sounds equal bilaterally. GASTROINTESTINAL: Abdomen soft, non-tender, nondistended. No rebound or guarding MUSCULOSKELETAL: Extremities without clubbing, cyanosis, or edema. No obvious deformities. NEUROLOGICAL: Awake and alert. medial deviation of right eye, nystagmus laterally without rotary/vertical phase.No obvious cranial nerve deficits. Motor grossly within normal limits. Five out of 5 muscle strength in the arms and legs. mild slurred speech. PSYCHIATRIC: Appropriate mood and affect; insight and judgment normal. Course Initial Documented Vital Signs Temperature 97.9 F 01/01/18 14:59 Pulse Rate 82 01/01/18 14:59 Respiratory Rate 18 01/01/18 14:59 Blood Pressure 193/95 H 01/01/18 14:59 Pulse Oximetry 97 01/01/18 14:59 Last Documented Vital Signs Temperature 98.2 F 01/03/18 12:00 Pulse Rate 78 01/03/18 14:00 Respiratory Rate 18 01/03/18 12:00 Blood Pressure 149/82 H 01/03/18 14:16 Pulse Oximetry 96 01/03/18 08:00 Critical Care Time Critical Care Time: Yes Total Critical Care Time: 30 Attestation: Aggregate critical care time was 30 minutes. Time to perform other separately billable procedures was not included in the critical care time. My time did not include minutes spent treating any other patients simultaneously or on activities that did not directly contribute to the patient's treatment. The services I provided to this patient were to treat and/or prevent clinically significant deterioration that could result in: [perm neuro deficit, ] I provided critical care services requiring my management, as noted below: Chart data review, documentation time, medication orders and management, vital sign assessments/reviewing monitor data, ordering and reviewing lab tests, ordering and interpreting/reviewing x-rays and diagnostic studies, care of the patient and discussion of the patient with the admitting physicians. Medical Decision Making MDM Narrative Medical decision making narrative: On reevaluation upon return from CT the patient was without any nystagmus without any medial deviation of the right eye , she had clear speech, complete resolution of all symptoms that she presented with Differential Diagnosis Differential Diagnosis: tia v cva v electrolyte abnl v stemi Medical Records Medical records reviewed: Yes I reviewed the patient's medical records. Lab Data Lab results reviewed: Yes I reviewed the patient's lab results. Result diagrams: 01/01/18 15:10 01/01/18 15:10 Lab Results 01/01/18 01/01/18 01/01/18 Range/Units 15:07 15:10 15:10 WBC 7.5 (4.0-11.0) th/mm3 RBC 4.60 (4.00-5.30) mil/mm3 Hgb 14.2 (11.6-15.3) gm/dL POC Hgb (Calc) (11.6-15.3) g/dL Hct 41.7 (35.0-46.0) % POC Hct (35-46.0) % MCV 90.7 (80.0-100.0) fL MCH 30.9 (27.0-34.0) pg MCHC 34.1 (32.0-36.0) % RDW 12.7 (11.6-17.2) % Plt Count 299 (150-450) th/mm3 MPV 8.0 (7.0-11.0) fL Neut % (Auto) 69.9 (16.0-70.0) % Lymph % (Auto) 20.4 (9.0-44.0) % [place] % (Auto) 8.3 H (0.0-8.0) % Eos % (Auto) 0.5 (0.0-4.0) % Baso % (Auto) 0.9 (0.0-2.0) % Neut # (Auto) 5.3 (1.8-7.7) th/mm3 Lymph # (Auto) 1.5 (1.0-4.8) th/mm3 [place] # (Auto) 0.6 (0.0-0.9) th/mm3 Eos # (Auto) 0.0 (0.0-0.4) th/mm3 Baso # (Auto) 0.1 (0.0-0.2) th/mm3 WBC Differential . Differential Comment Auto diff final ESR PT 18.7 H (9.8-11.6) sec INR 1.8 Ratio APTT 31.3 H (24.3-30.1) sec Fibrinogen 367 (227-377) mg/dL POC Sodium (137-144) mmol/L Sodium (136-145) meq/L POC Potassium (3.6-5.0) mmol/L Potassium (3.5-5.1) meq/L POC Chloride (102-111) mmol/L Chloride (98-107) meq/L Carbon Dioxide (21.0-32.0) meq/L Anion Gap (5-15) meq/L POC BUN (5-21) mg/dL BUN (7-18) mg/dL Creatinine (0.50-1.00) mg/dL POC Creatinine (0.6-1.3) mg/dL Estimated GFR (>89) mL/min POC Glucose 127 H (68-110) mg/dl Random Glucose (74-106) mg/dL Calcium (8.5-10.1) mg/dL Total Creatine Kinase (26-192) U/L CK-MB (CK-2) (0.5-3.6) ng/mL CK-MB (CK-2) % (0.0-4.0) % Troponin I (0.02-0.05) ng/mL C-Reactive Protein (0.00-0.30) mg/dL Vitamin B12 (193-986) pg/mL Methylmalonic Acid (<=0.40) nmol/mL TSH (0.358-3.740) uIU/mL Thyroxine (T4) (4.8-13.9) mcg/dL Urine Color (Yellw/Straw) Urine Clarity (Clear) Urine pH (5.0-8.5) Ur Specific [place] (1.002-1.035) Urine Protein (Neg-Trace) mg/dL Urine Glucose (UA) (Negative) mg/dL Urine Ketones (Negative) mg/dL Urine Occult Blood (Negative) Urine Nitrate (Negative) Urine Bilirubin (Negative) Urine Urobilinogen (Less than 2) mg/dL Ur Leukocyte Esterase (Negative) Urine RBC (0-3) /hpf Urine WBC (0-5) /hpf Uric Acid Crystals (None) /hpf Urine Bacteria (None) /hpf Urine Mucus (Occasional) /lpf Micro UA Comment Urine Culture Comments Blood Type Blood Type Recheck Antibody Screen 01/01/18 01/01/18 01/01/18 Range/Units 15:10 15:10 15:10 WBC (4.0-11.0) th/mm3 RBC (4.00-5.30) mil/mm3 Hgb (11.6-15.3) gm/dL POC Hgb (Calc) 13.6 (11.6-15.3) g/dL Hct (35.0-46.0) % POC Hct 40.0 (35-46.0) % MCV (80.0-100.0) fL MCH (27.0-34.0) pg MCHC (32.0-36.0) % RDW (11.6-17.2) % Plt Count (150-450) th/mm3 MPV (7.0-11.0) fL Neut % (Auto) (16.0-70.0) % Lymph % (Auto) (9.0-44.0) % [place] % (Auto) (0.0-8.0) % Eos % (Auto) (0.0-4.0) % Baso % (Auto) (0.0-2.0) % Neut # (Auto) (1.8-7.7) th/mm3 Lymph # (Auto) (1.0-4.8) th/mm3 [place] # (Auto) (0.0-0.9) th/mm3 Eos # (Auto) (0.0-0.4) th/mm3 Baso # (Auto) (0.0-0.2) th/mm3 WBC Differential Differential Comment ESR PT (9.8-11.6) sec INR Ratio APTT (24.3-30.1) sec Fibrinogen (227-377) mg/dL POC Sodium 138 (137-144) mmol/L Sodium 139 (136-145) meq/L POC Potassium 4.3 (3.6-5.0) mmol/L Potassium 4.2 (3.5-5.1) meq/L POC Chloride 103 (102-111) mmol/L Chloride 107 (98-107) meq/L Carbon Dioxide 25.0 (21.0-32.0) meq/L Anion Gap 7 (5-15) meq/L POC BUN 21 (5-21) mg/dL BUN 20 H (7-18) mg/dL Creatinine 0.80 (0.50-1.00) mg/dL POC Creatinine 0.7 (0.6-1.3) mg/dL Estimated GFR 68 L (>89) mL/min POC Glucose 129 H (68-110) mg/dl Random Glucose 129 H (74-106) mg/dL Calcium 8.5 (8.5-10.1) mg/dL Total Creatine Kinase 248 H (26-192) U/L CK-MB (CK-2) 3.7 H (0.5-3.6) ng/mL CK-MB (CK-2) % 1.5 (0.0-4.0) % Troponin I Less than 0.02 L (0.02-0.05) ng/mL C-Reactive Protein (0.00-0.30) mg/dL Vitamin B12 (193-986) pg/mL Methylmalonic Acid (<=0.40) nmol/mL TSH (0.358-3.740) uIU/mL Thyroxine (T4) (4.8-13.9) mcg/dL Urine Color (Yellw/Straw) Urine Clarity (Clear) Urine pH (5.0-8.5) Ur Specific [place] (1.002-1.035) Urine Protein (Neg-Trace) mg/dL Urine Glucose (UA) (Negative) mg/dL Urine Ketones (Negative) mg/dL Urine Occult Blood (Negative) Urine Nitrate (Negative) Urine Bilirubin (Negative) Urine Urobilinogen (Less than 2) mg/dL Ur Leukocyte Esterase (Negative) Urine RBC (0-3) /hpf Urine WBC (0-5) /hpf Uric Acid Crystals (None) /hpf Urine Bacteria (None) /hpf Urine Mucus (Occasional) /lpf Micro UA Comment Urine Culture Comments Blood Type A Negative Blood Type Recheck Required Antibody Screen Negative 01/01/18 01/01/18 01/01/18 Range/Units 15:10 15:10 16:05 WBC (4.0-11.0) th/mm3 RBC (4.00-5.30) mil/mm3 Hgb (11.6-15.3) gm/dL POC Hgb (Calc) (11.6-15.3) g/dL Hct (35.0-46.0) % POC Hct (35-46.0) % MCV (80.0-100.0) fL MCH (27.0-34.0) pg MCHC (32.0-36.0) % RDW (11.6-17.2) % Plt Count (150-450) th/mm3 MPV (7.0-11.0) fL Neut % (Auto) (16.0-70.0) % Lymph % (Auto) (9.0-44.0) % [place] % (Auto) (0.0-8.0) % Eos % (Auto) (0.0-4.0) % Baso % (Auto) (0.0-2.0) % Neut # (Auto) (1.8-7.7) th/mm3 Lymph # (Auto) (1.0-4.8) th/mm3 [place] # (Auto) (0.0-0.9) th/mm3 Eos # (Auto) (0.0-0.4) th/mm3 Baso # (Auto) (0.0-0.2) th/mm3 WBC Differential Differential Comment ESR PT (9.8-11.6) sec INR Ratio APTT (24.3-30.1) sec Fibrinogen (227-377) mg/dL POC Sodium (137-144) mmol/L Sodium (136-145) meq/L POC Potassium (3.6-5.0) mmol/L Potassium (3.5-5.1) meq/L POC Chloride (102-111) mmol/L Chloride (98-107) meq/L Carbon Dioxide (21.0-32.0) meq/L Anion Gap (5-15) meq/L POC BUN (5-21) mg/dL BUN (7-18) mg/dL Creatinine (0.50-1.00) mg/dL POC Creatinine (0.6-1.3) mg/dL Estimated GFR (>89) mL/min POC Glucose (68-110) mg/dl Random Glucose (74-106) mg/dL Calcium (8.5-10.1) mg/dL Total Creatine Kinase (26-192) U/L CK-MB (CK-2) (0.5-3.6) ng/mL CK-MB (CK-2) % (0.0-4.0) % Troponin I (0.02-0.05) ng/mL C-Reactive Protein (0.00-0.30) mg/dL Vitamin B12 516 (193-986) pg/mL Methylmalonic Acid (<=0.40) nmol/mL TSH 0.885 (0.358-3.740) uIU/mL Thyroxine (T4) 9.4 (4.8-13.9) mcg/dL Urine Color Yellow (Yellw/Straw) Urine Clarity Cloudy H (Clear) Urine pH 5.0 (5.0-8.5) Ur Specific [place] 1.019 (1.002-1.035) Urine Protein Negative (Neg-Trace) mg/dL Urine Glucose (UA) Negative (Negative) mg/dL Urine Ketones Trace H (Negative) mg/dL Urine Occult Blood Small H (Negative) Urine Nitrate Negative (Negative) Urine Bilirubin Negative (Negative) Urine Urobilinogen Less than 2 (Less than 2) mg/dL Ur Leukocyte Esterase Negative (Negative) Urine RBC 11 H (0-3) /hpf Urine WBC 4 (0-5) /hpf Uric Acid Crystals Moderate H (None) /hpf Urine Bacteria Rare H (None) /hpf Urine Mucus Few H (Occasional) /lpf Micro UA Comment Cath-culture ind Urine Culture Comments Cath-cult indicated Blood Type Blood Type Recheck Antibody Screen 01/01/18 01/02/18 01/02/18 Range/Units 16:10 05:38 05:38 WBC (4.0-11.0) th/mm3 RBC (4.00-5.30) mil/mm3 Hgb (11.6-15.3) gm/dL POC Hgb (Calc) (11.6-15.3) g/dL Hct (35.0-46.0) % POC Hct (35-46.0) % MCV (80.0-100.0) fL MCH (27.0-34.0) pg MCHC (32.0-36.0) % RDW (11.6-17.2) % Plt Count (150-450) th/mm3 MPV (7.0-11.0) fL Neut % (Auto) (16.0-70.0) % Lymph % (Auto) (9.0-44.0) % [place] % (Auto) (0.0-8.0) % Eos % (Auto) (0.0-4.0) % Baso % (Auto) (0.0-2.0) % Neut # (Auto) (1.8-7.7) th/mm3 Lymph # (Auto) (1.0-4.8) th/mm3 [place] # (Auto) (0.0-0.9) th/mm3 Eos # (Auto) (0.0-0.4) th/mm3 Baso # (Auto) (0.0-0.2) th/mm3 WBC Differential Differential Comment ESR Cancelled PT 17.7 H (9.8-11.6) sec INR 1.7 Ratio APTT (24.3-30.1) sec Fibrinogen (227-377) mg/dL POC Sodium (137-144) mmol/L Sodium (136-145) meq/L POC Potassium (3.6-5.0) mmol/L Potassium (3.5-5.1) meq/L POC Chloride (102-111) mmol/L Chloride (98-107) meq/L Carbon Dioxide (21.0-32.0) meq/L Anion Gap (5-15) meq/L POC BUN (5-21) mg/dL BUN (7-18) mg/dL Creatinine (0.50-1.00) mg/dL POC Creatinine (0.6-1.3) mg/dL Estimated GFR (>89) mL/min POC Glucose (68-110) mg/dl Random Glucose (74-106) mg/dL Calcium (8.5-10.1) mg/dL Total Creatine Kinase (26-192) U/L CK-MB (CK-2) (0.5-3.6) ng/mL CK-MB (CK-2) % (0.0-4.0) % Troponin I (0.02-0.05) ng/mL C-Reactive Protein (0.00-0.30) mg/dL Vitamin B12 (193-986) pg/mL Methylmalonic Acid 0.13 (<=0.40) nmol/mL TSH (0.358-3.740) uIU/mL Thyroxine (T4) (4.8-13.9) mcg/dL Urine Color (Yellw/Straw) Urine Clarity (Clear) Urine pH (5.0-8.5) Ur Specific [place] (1.002-1.035) Urine Protein (Neg-Trace) mg/dL Urine Glucose (UA) (Negative) mg/dL Urine Ketones (Negative) mg/dL Urine Occult Blood (Negative) Urine Nitrate (Negative) Urine Bilirubin (Negative) Urine Urobilinogen (Less than 2) mg/dL Ur Leukocyte Esterase (Negative) Urine RBC (0-3) /hpf Urine WBC (0-5) /hpf Uric Acid Crystals (None) /hpf Urine Bacteria (None) /hpf Urine Mucus (Occasional) /lpf Micro UA Comment Urine Culture Comments Blood Type Blood Type Recheck Antibody Screen 01/02/18 01/02/18 01/03/18 Range/Units 09:17 09:17 07:12 WBC (4.0-11.0) th/mm3 RBC (4.00-5.30) mil/mm3 Hgb (11.6-15.3) gm/dL POC Hgb (Calc) (11.6-15.3) g/dL Hct (35.0-46.0) % POC Hct (35-46.0) % MCV (80.0-100.0) fL MCH (27.0-34.0) pg MCHC (32.0-36.0) % RDW (11.6-17.2) % Plt Count (150-450) th/mm3 MPV (7.0-11.0) fL Neut % (Auto) (16.0-70.0) % Lymph % (Auto) (9.0-44.0) % [place] % (Auto) (0.0-8.0) % Eos % (Auto) (0.0-4.0) % Baso % (Auto) (0.0-2.0) % Neut # (Auto) (1.8-7.7) th/mm3 Lymph # (Auto) (1.0-4.8) th/mm3 [place] # (Auto) (0.0-0.9) th/mm3 Eos # (Auto) (0.0-0.4) th/mm3 Baso # (Auto) (0.0-0.2) th/mm3 WBC Differential Differential Comment ESR 11 PT 17.8 H (9.8-11.6) sec INR 1.8 Ratio APTT (24.3-30.1) sec Fibrinogen (227-377) mg/dL POC Sodium (137-144) mmol/L Sodium (136-145) meq/L POC Potassium (3.6-5.0) mmol/L Potassium (3.5-5.1) meq/L POC Chloride (102-111) mmol/L Chloride (98-107) meq/L Carbon Dioxide (21.0-32.0) meq/L Anion Gap (5-15) meq/L POC BUN (5-21) mg/dL BUN (7-18) mg/dL Creatinine (0.50-1.00) mg/dL POC Creatinine (0.6-1.3) mg/dL Estimated GFR (>89) mL/min POC Glucose (68-110) mg/dl Random Glucose (74-106) mg/dL Calcium (8.5-10.1) mg/dL Total Creatine Kinase (26-192) U/L CK-MB (CK-2) (0.5-3.6) ng/mL CK-MB (CK-2) % (0.0-4.0) % Troponin I (0.02-0.05) ng/mL C-Reactive Protein Less than 0.29 (0.00-0.30) mg/dL Vitamin B12 (193-986) pg/mL Methylmalonic Acid (<=0.40) nmol/mL TSH (0.358-3.740) uIU/mL Thyroxine (T4) (4.8-13.9) mcg/dL Urine Color (Yellw/Straw) Urine Clarity (Clear) Urine pH (5.0-8.5) Ur Specific [place] (1.002-1.035) Urine Protein (Neg-Trace) mg/dL Urine Glucose (UA) (Negative) mg/dL Urine Ketones (Negative) mg/dL Urine Occult Blood (Negative) Urine Nitrate (Negative) Urine Bilirubin (Negative) Urine Urobilinogen (Less than 2) mg/dL Ur Leukocyte Esterase (Negative) Urine RBC (0-3) /hpf Urine WBC (0-5) /hpf Uric Acid Crystals (None) /hpf Urine Bacteria (None) /hpf Urine Mucus (Occasional) /lpf Micro UA Comment Urine Culture Comments Blood Type Blood Type Recheck Antibody Screen Imaging Data Radiologist's impression: Head MRI 01/01/18 00:00 CONCLUSION: 1. No evidence of acute infarction. 2. Chronic ischemic change, stable from 2016. Chest X-Ray 01/01/18 15:11 CONCLUSION: No acute intrathoracic disease. Head CT 01/01/18 15:11 CONCLUSION: 1. Very small focal loss of weaver-white matter differentiation in the right parietal high convexities. Given lack of recent comparisons, this may be subacute/chronic in etiology. MRI examination may be performed for further evaluation if clinically warranted. 2. Otherwise, no acute intracranial abnormality. Specifically, no evidence for intracranial hemorrhage. Report was personally called to Dr. Madison at 1525 PM. Head MRA 01/02/18 00:00 CONCLUSION: 1. Negative MRA Cow ([place]) non contrast. Neck MRA 01/02/18 00:00 CONCLUSION: 1. 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 2. Patent right carotid. 3. 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 4. Patent vertebral arteries. Percent stenosis is calculated using the diameter of the stenotic region over the diameter of the normal distal internal carotid artery Discharge Plan Discharge Disposition Patient Disposition: 30 Still Patient Discharge Condition Condition: Stable Discharge Order Discharge Orders: Discharge Order (Routine); Ordered 01/03/18 Ordered By: Candida Garcia Discharge Details Anticipated Discharge Date: 01/03/18 Diagnosis: TIA (transient ischemic attack) Physicians Team ED Provider: Martin Madison Primary Care Provider: Ernesto Griffiths Attending Provider: Candida Garcia Other Providers: Alina Fuller Discharge Interventions Interventions: ED Discharge Assessment Last Done: 01/02/18 14:20 Status ED Status: Left Department Discharge Information Discharge Date/Time: 01/02/18 14:21
[2018-01-01 16:08] LABS: Calcium 8.5 mg/dL (8.5-10.1); Potassium 4.2 meq/L (3.5-5.1)
[2018-01-01 16:13] LABS: Creatine Kinase 248 U/L (26-192)
--- NOTE | 2018-01-01 16:17 | XR ---
EXAM DATE: 01/01/2018 3:39 PM EDT AGE/SEX: 87 years / Female INDICATIONS: . Stroke alert CLINICAL DATA: This is the patient's initial encounter. Patient reports that signs and symptoms have been present for 1 day and indicates a pain score of Nonresponsive. MEDICAL/SURGICAL HISTORY: Non-responsive. Non-responsive. COMPARISON: No prior exams available for comparison. FINDINGS: A single AP view of the chest demonstrates the lungs to be symmetrically aerated without evidence of mass, infiltrate or effusion. The cardiomediastinal contours are unremarkable. Osseous structures a re intact. CONCLUSION: No acute intrathoracic disease. Electronically signed by: Amaury Vega MD 01/01/2018 4:16 PM EDT
--- NOTE | 2018-01-01 16:20 | MB ---
cc: Ernesto Nieves MD DATE: 01/01/2018 HISTORY OF PRESENT ILLNESS: An 87-year-old right-handed woman with hypertension, pelvic fracture, breast cancer many years ago, status post left mastectomy. I have not seen her in over a year. We had put her on Coumadin. 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 MRA of [place] looked fine. I actually put her on an aspirin and statin. I think the statin was stopped because her LDL was fine. 300-day heart monitor was negative. MRA of the neck showed 60% left ICA, 35% left subclavian stenosis. Carotid ultrasound was negative. The left vertebral artery was slightly dominant. Echo was normal. B12 is 244. She continued on the aspirin, then she had some episodes of feeling hot standing and had to sit down. 30-day monitor was negative. She had some slight memory problems and then she had some memory difficulty and had some left facial droop and slurred speech in the office, went to the hospital, had multiple right MCA infarcts, was put on Plavix. Carotid ultrasound showed mild to moderate disease on the left, normal in the right. [place] was normal. Then, she had in 07/2016 slurred speech for 30 minutes. MRI showed increased size of the infarct on the right, possibly a new infarct there. We started her on Coumadin. She has done well since that time, the INR is followed by Dr. Ribeiro. She has felt tired for the last month, worse in the last week and then she woke up overnight and felt a little bit staggering, no true vertigo and came into the hospital. Blood pressure was 190. ALLERGIES: NO KNOWN ALLERGIES. FAMILY HISTORY: Negative for cancer, seizure or stroke. SOCIAL HISTORY: Not a smoker. Three drinks a week. Lives by herself. Daughter lives in town. REVIEW OF SYSTEMS: Denied any diabetes, hypercholesterolemia, ND, stent, angioplasty, AFib, CABG, renal, hepatic or pulmonary disease, thyroid disease, lupus, ulcer, seizure. PHYSICAL EXAMINATION: VITAL SIGNS: She is 160 systolic. NECK: There were no carotid bruits. HEART: Regular rhythm. I did not detect a murmur. NEUROLOGIC: Pupils are equal. Visual cadena are full. Extraocular movements are intact without nystagmus. I do not see any difficulty with eye inversion or medial movement of either eye. Face is symmetric with normal sensation. Tongue was midline. No drift. Normal strength in upper and lower extremities bilaterally. DTRs trace throughout. Toes downgoing bilaterally. Pinprick is intact throughout. There is no ataxia on [id number] or [id number]. Speech is fluent. She is not aphasic. LABORATORY DATA: Pending, but the I-STAT is normal. IMAGING STUDIES: CT scan of the brain shows some old right infarcts and white matter changes bilaterally. IMPRESSION: I do not see anything definitely new for a stroke here. We will check an MRI of the brain, a UA, some further blood work, find out what her INR is. I will be following her with you in the hospital. MD PAU Araujo/VICENTE , 03:54 PM , 04:19 PM
[2018-01-01 16:25] LABS: CKMB Percent 1.5 % (0.0-4.0); Creatine Kinase MB 3.7 ng/mL (0.5-3.6)
[2018-01-01 16:59] LABS: Bacteria,Urine Rare /hpf; Bilirubin,Urine Negative (Negative); Clarity,Urine Cloudy (Clear); Color,Urine Yellow (Yellw/Straw); Glucose,Urine (UA) Negative (Negative); Leukocyte Esterase,Urine Negative (Negative); Mucus,Urine Few /lpf (Occasional); Nitrite,Urine Negative (Negative); Specific Gravity,Urine 1.019 (1.002-1.035); Uric Acid Crystals,Urine Moderate /hpf
--- NOTE | 2018-01-01 17:40 | P.HPIM ---
History of Present Illness Primary Care Physician: Ernesto Griffiths MD Chief Complaint: ' I feel tired'. History of Present Illness: patient is a87 y/o female with history of CVA who presented to ER with fatigue and dizziness. she says that she's normally active but she has these episodes of extreme fatigue from time to time. she says that had ' another episode' last night. she says that she was lightheaded this morning. she denies any new focal weakness or slurred speech. she denies any fever, chills, headache, chest pain or urinary complaints. Review of Systems All other systems reviewed negative except as stated in HPI PMFSH - History History Provided By: Patient, Family Member - Medical History Medical History: Medical History (Last Updated 01/01/18 @ 15:30 by Dinah Bowers) Breast cancer Depressed Dorsalgia Hyperlipemia Insomnia Stroke - Surgical History Surgical History: Surgical History (Last Updated 01/01/18 @ 15:31 by Dinah Bowers) H/O mastectomy - Tobacco History Second Hand Smoke Exposure: No Smoking Status: Never smoker - Alcohol History How Often Do You Have a Drink Containing Alcohol: 2 to 4 times a month - Travel History Recent Travel in the [place] Within the Last 8 Weeks: No Recent Travel Out of the Country Within the Last 8 Weeks: No - Immunization History Tetanus Immunization: Unsure Hx Influenza Vaccine This Season: Yes Medications and Allergies Allergies Allergy/AdvReac Type Severity Reaction Status Date / Time iodine Allergy Severe Swelling Verified 01/01/18 15:40 potassium iodide Allergy Severe Swelling Verified 01/01/18 15:40 povidone-iodine Allergy Severe Swelling Verified 01/01/18 15:40 sodium iodide Allergy Severe Swelling Verified 01/01/18 15:40 sodium iodide Allergy Severe Swelling Verified 01/01/18 15:40 Home Medications Medication Instructions Recorded Confirmed Type atorvastatin 40 mg PO DAILY 01/01/18 01/01/18 History temazepam 30 mg PO HS 01/01/18 01/01/18 History warfarin 3 mg PO DAILY 01/01/18 01/01/18 History warfarin 4 mg PO EVERY OTHER DAY 01/01/18 01/01/18 History Exam Vital signs: Vital Signs 01/01/18 14:59 01/01/18 15:36 01/01/18 16:31 Temperature 97.9 F Pulse Rate 82 87 Respiratory Rate 18 14 Blood Pressure 193/95 H 196/93 H 195/87 H Pulse Oximetry 97 95 01/01/18 17:22 Temperature Pulse Rate 77 Respiratory Rate 14 Blood Pressure 152/70 H Pulse Oximetry 97 Intake & Output 12/31/17 01/01/18 01/01/18 18:59 06:59 18:59 Weight 72.3 kg - Constitutional no acute distress - Routine Neck Exam Present: supple - Routine Respiratory Exam Present: CTA bilaterally - Routine Cardiovascular Exam Present: RRR - Routine Abdominal Exam Present: soft - Routine Extremities Exam Comments: no pedal edema. - Routine Neurological Exam Present: alert, oriented X3 Results - Labs CBC & Chem 7: 01/01/18 15:10 01/01/18 15:10 Labs: Short CBC 01/01/18 Range/Units 15:10 WBC 7.5 (4.0-11.0) th/mm3 Hgb 14.2 (11.6-15.3) gm/dL Hct 41.7 (35.0-46.0) % Plt Count 299 (150-450) th/mm3 BMP 01/01/18 15:10 Sodium 139 Potassium 4.2 Chloride 107 Carbon Dioxide 25.0 BUN 20 H Creatinine 0.80 Calcium 8.5 Cardiac Enzymes 01/01/18 Range/Units 15:10 Total Creatine Kinase 248 H (26-192) U/L CK-MB (CK-2) 3.7 H (0.5-3.6) ng/mL Troponin I Less than 0.02 L (0.02-0.05) ng/mL Urine 01/01/18 Range/Units 16:05 Urine Color Yellow (Yellw/Straw) Urine Clarity Cloudy H (Clear) Urine pH 5.0 (5.0-8.5) Ur Specific [place] 1.019 (1.002-1.035) Urine Protein Negative (Neg-Trace) mg/dL Urine Glucose (UA) Negative (Negative) mg/dL - Imaging Impressions Chest X-Ray 01/01/18 15:11 CONCLUSION: No acute intrathoracic disease. Head CT 01/01/18 15:11 CONCLUSION: 1. Very small focal loss of weaver-white matter differentiation in the right parietal high convexities. Given lack of recent comparisons, this may be subacute/chronic in etiology. MRI examination may be performed for further evaluation if clinically warranted. 2. Otherwise, no acute intracranial abnormality. Specifically, no evidence for intracranial hemorrhage. Report was personally called to Dr. Madison at 1525 PM. Caprini VTE Risk Assessment Caprini VTE Risk Assessment: Moderate/High Risk (score >= 2) Caprini Risk Assessment Model: Point Value = 1 Point Value = 2 Point Value = 3 Point Value = 5 Age 41-60 Minor surgery BMI > 25 kg/m2 Swollen legs Varicose veins or History of unexplained or recurrent spontaneous Oral contraceptives or hormone replacement Sepsis (< 1 month) Serious lung disease, including pneumonia (< 1 month) Abnormal pulmonary function Acute myocardial infarction Congestive heart failure (< 1 month) History of inflammatory bowel disease Medical patient at bed rest Age 61-74 Arthroscopic surgery Major open surgery (> 45 min) Laparoscopic surgery (> 45 min) Malignancy Confined to bed (> 72 hours) Immobilizing plaster cast Central venous access Age >= 75 History of VTE Family history of VTE Factor V Leiden Prothrombin [id number] Lupus anticoagulant Anticardiolipin antibodies Elevated serum homocysteine Heparin-induced thrombocytopenia Other congenital or acquired thrombophilia Stroke (< 1 month) Elective arthroplasty Hip, pelvis, or leg fracture Acute spinal cord injury (< 1 month) Prophylaxis Regimen: Total Risk Factor Score Risk Level Prophylaxis Regimen 0-1 Low Early ambulation 2 Moderate Order ONE of the following: *Sequential Compression Device (SCD) *Heparin 5000 units SQ BID 3-4 Higher Order ONE of the following medications: *Heparin 5000 units SQ TID *Enoxaparin/Lovenox 40 mg SQ daily (WT < 150 kg, CrCl > 30 mL/min) *Enoxaparin/Lovenox 30 mg SQ daily (WT < 150 kg, CrCl > 10-29 mL/min) *Enoxaparin/Lovenox 30 mg SQ BID (WT < 150 kg, CrCl > 30 mL/min) AND/OR *Sequential Compression Device (SCD) 5 or more Highest Order ONE of the following medications: *Heparin 5000 units SQ TID (Preferred with Epidurals) *Enoxaparin/Lovenox 40 mg SQ daily (WT < 150 kg, CrCl > 30 mL/min) *Enoxaparin/Lovenox 30 mg SQ daily (WT < 150 kg, CrCl > 10-29 mL/min) *Enoxaparin/Lovenox 30 mg SQ BID (WT < 150 kg, CrCl > 30 mL/min) AND *Sequential Compression Device (SCD) Assessment and Plan - Plan A/P - possible TIA vs CVA with history of stroke- neurology consult appreciated-MRI brain pending-will consult PT resume coumadin with PT/INR monitoring. -elevated BP's; with no history of hypertension; will monitor for now with IV Vasotec prn. -DVT prophylaxis; on Couamdin. Discussed Condition With: ER physician and the patient.
[2018-01-01 19:05] LABS: T4 (Thyroxine) 9.4 mcg/dL (4.8-13.9)
[2018-01-01] MEDS: Sod Chloride 0.9% Inj 1,000 ML IV.CONT SCH (20:04)
--- NOTE | 2018-01-01 22:40 | MR ---
EXAM DATE: 01/01/2018 9:13 PM EDT AGE/SEX: 87 years / Female INDICATIONS: CVA. CLINICAL DATA: This is the patient's initial encounter. Patient reports that signs and symptoms have been present for 1 day and indicates a pain score of 0/10. MEDICAL/SURGICAL HISTORY: Stroke. Breast Ca, HTN . Mastectomy COMPARISON: [facility], MRI BRAIN W/O CONTRAST, 11/10/2015. . TECHNIQUE: Multiplanar, multisequence examination of the brain was performed without contrast. FINDINGS: Cerebrum: The ventricles are normal for age. No evidence of midline shift, mass lesion, hemorrhage or acute infarction. No extraaxial fluid collections are seen. The pituitary gland and suprasellar cistern are normal in configuration. White Matter: There are some scattered areas of T2 prolongation in the subcortical and periventricul ar white matter and there is prominence of the [place]chow-[place]tar perivascular spaces characteristic of di ffuse ischemic change. The appearance is similar to prior MRI in 2016. Posterior Fossa: The cerebellum and brainstem are intact. The 4th ventricle is midline. The cerebel lopontine angle is unremarkable. The cerebellar tonsils are normal in position. Diffusion Imaging: No focal areas of restricted diffusion are seen. No evidence of acute infarction . Extracranial: The visualized portions of the orbits and paranasal sinuses are unremarkable. Arthropa thy of the atlantoaxial articulation is similar to prior MR in 2016. CONCLUSION: 1. No evidence of acute infarction. 2. Chronic ischemic change, stable from 2016. Electronically signed by: Trevon Colbert MD 01/01/2018 10:39 PM EDT
[2018-01-02] MEDS ORDERED: hydrALAZINE HCl Inj 20 MG/ML Vial IV.PUSH ONE (03:47)
[2018-01-02] MEDS: Acetaminophen 500 MG Tablet PO PRN (03:55)
[2018-01-02] MEDS: Sod Chloride 0.9% Inj 1,000 ML IV.CONT SCH ×2 (06:32→19:19)
--- NOTE | 2018-01-02 07:16 | P.PNNEU ---
Subjective Subjective Comments: some anxiety overnoc acc to zackary law Active Medications: Active Medications Acetaminophen (Tylenol) 500 mg PO Q6H PRN PRN Reason: LOREDO, Fever Last Admin: 01/02/18 03:55 Dose: 500 mg Atorvastatin Calcium (Lipitor) 40 mg PO DAILY [facility] Clonidine HCl (Catapres) 0.1 mg PO Q6H PRN PRN Reason: SBP>160, DBP>90 Enalaprilat (Vasotec Inj) 1.25 mg IV.PUSH Q8H PRN PRN Reason: SBP > 180 or DBP > 110 Last Admin: 01/02/18 02:32 Dose: 1.25 mg Sodium Chloride (Ns Inj) 1,000 mls @ 84 mls/hr IV.CONT .[id number] [facility] Last Admin: 01/02/18 06:32 Dose: 84 mls/hr Patient Medication Teaching (Coumadin Booklet) 1 each OTHER ONCE [facility] Warfarin Sodium (Coumadin) 4 mg PO EVERY OTHER DAY@1600 [facility] Warfarin Sodium (Coumadin) 3 mg PO EVERY OTHER DAY@1600 [facility] Allergies/Adverse Reactions: Allergies Allergy/AdvReac Type Severity Reaction Status Date / Time iodine Allergy Severe Swelling Verified 01/01/18 15:40 potassium iodide Allergy Severe Swelling Verified 01/01/18 15:40 povidone-iodine Allergy Severe Swelling Verified 01/01/18 15:40 sodium iodide Allergy Severe Swelling Verified 01/01/18 15:40 sodium iodide Allergy Severe Swelling Verified 01/01/18 15:40 Physical Exam Vital signs: Vital Signs 01/01/18 14:59 01/01/18 15:36 01/01/18 16:31 Temperature 97.9 F Pulse Rate 82 87 Respiratory Rate 18 14 Blood Pressure 193/95 H 196/93 H 195/87 H Pulse Oximetry 97 95 01/01/18 17:22 01/01/18 19:16 01/01/18 19:40 Temperature Pulse Rate 77 74 Respiratory Rate 14 18 Blood Pressure 152/70 H 152/59 H Pulse Oximetry 97 96 97 01/01/18 21:24 01/02/18 02:23 01/02/18 02:32 Temperature Pulse Rate 75 72 70 Respiratory Rate 18 20 18 Blood Pressure 169/74 H 183/84 H 178/81 H Pulse Oximetry 96 97 01/02/18 03:39 01/02/18 04:07 01/02/18 04:59 Temperature 98.5 F Pulse Rate 65 68 91 H Respiratory Rate 16 18 Blood Pressure 180/63 H 173/79 H Pulse Oximetry 98 98 01/02/18 05:24 01/02/18 06:12 01/02/18 07:09 Temperature Pulse Rate 79 76 77 Respiratory Rate 18 18 15 Blood Pressure 152/69 H 146/70 H 154/72 H Pulse Oximetry 95 96 Intake & Output 01/01/18 01/02/18 01/02/18 18:59 06:59 18:59 Intake Total 1000 / 1000 Output Total 1000 / 1000 Balance 0 / 0 Weight 72.3 kg Intake: IV 1000 / 1000 NS Inj 1,000 ML @ 84 mls/hr IV. 1000 / 1000 CONT .[id number] [facility] Rx#:[id number] Output: Urine Amount (Catheter) 1000 / 1000 3-way Urethral 1000 / 1000 Narrative: vff face sym voice ok moves all well - Urinary Catheter Management 3-way Urethral Cath placed during this visit: yes Reason for continuing: Hourly intake/output Insertion date: 01/01/18 Insertion time: 15:44 Objective Laboratory Results - last 24 hr 01/01/18 01/01/18 01/01/18 15:07 15:10 15:10 WBC 7.5 RBC 4.60 Hgb 14.2 POC Hgb (Calc) Hct 41.7 POC Hct MCV 90.7 MCH 30.9 MCHC 34.1 RDW 12.7 Plt Count 299 MPV 8.0 Neut % (Auto) 69.9 Lymph % (Auto) 20.4 [place] % (Auto) 8.3 H Eos % (Auto) 0.5 Baso % (Auto) 0.9 Neut # (Auto) 5.3 Lymph # (Auto) 1.5 [place] # (Auto) 0.6 Eos # (Auto) 0.0 Baso # (Auto) 0.1 WBC Differential . Differential Comment Auto diff final ESR PT 18.7 H INR 1.8 APTT 31.3 H Fibrinogen 367 POC Sodium Sodium POC Potassium Potassium POC Chloride Chloride Carbon Dioxide Anion Gap POC BUN BUN Creatinine POC Creatinine Estimated GFR POC Glucose 127 H Random Glucose Calcium Total Creatine Kinase CK-MB (CK-2) CK-MB (CK-2) % Troponin I Vitamin B12 TSH Thyroxine (T4) Urine Color Urine Clarity Urine pH Ur Specific [place] Urine Protein Urine Glucose (UA) Urine Ketones Urine Occult Blood Urine Nitrate Urine Bilirubin Urine Urobilinogen Ur Leukocyte Esterase Urine RBC Urine WBC Uric Acid Crystals Urine Bacteria Urine Mucus Micro UA Comment Urine Culture Comments Blood Type Blood Type Recheck Antibody Screen 01/01/18 01/01/18 01/01/18 15:10 15:10 15:10 WBC RBC Hgb POC Hgb (Calc) 13.6 Hct POC Hct 40.0 MCV MCH MCHC RDW Plt Count MPV Neut % (Auto) Lymph % (Auto) [place] % (Auto) Eos % (Auto) Baso % (Auto) Neut # (Auto) Lymph # (Auto) [place] # (Auto) Eos # (Auto) Baso # (Auto) WBC Differential Differential Comment ESR PT INR APTT Fibrinogen POC Sodium 138 Sodium 139 POC Potassium 4.3 Potassium 4.2 POC Chloride 103 Chloride 107 Carbon Dioxide 25.0 Anion Gap 7 POC BUN 21 BUN 20 H Creatinine 0.80 POC Creatinine 0.7 Estimated GFR 68 L POC Glucose 129 H Random Glucose 129 H Calcium 8.5 Total Creatine Kinase 248 H CK-MB (CK-2) 3.7 H CK-MB (CK-2) % 1.5 Troponin I Less than 0.02 L Vitamin B12 TSH Thyroxine (T4) Urine Color Urine Clarity Urine pH Ur Specific [place] Urine Protein Urine Glucose (UA) Urine Ketones Urine Occult Blood Urine Nitrate Urine Bilirubin Urine Urobilinogen Ur Leukocyte Esterase Urine RBC Urine WBC Uric Acid Crystals Urine Bacteria Urine Mucus Micro UA Comment Urine Culture Comments Blood Type A Negative Blood Type Recheck Required Antibody Screen Negative 01/01/18 01/01/18 01/01/18 15:10 15:10 16:05 WBC RBC Hgb POC Hgb (Calc) Hct POC Hct MCV MCH MCHC RDW Plt Count MPV Neut % (Auto) Lymph % (Auto) [place] % (Auto) Eos % (Auto) Baso % (Auto) Neut # (Auto) Lymph # (Auto) [place] # (Auto) Eos # (Auto) Baso # (Auto) WBC Differential Differential Comment ESR PT INR APTT Fibrinogen POC Sodium Sodium POC Potassium Potassium POC Chloride Chloride Carbon Dioxide Anion Gap POC BUN BUN Creatinine POC Creatinine Estimated GFR POC Glucose Random Glucose Calcium Total Creatine Kinase CK-MB (CK-2) CK-MB (CK-2) % Troponin I Vitamin B12 516 TSH 0.885 Thyroxine (T4) 9.4 Urine Color Yellow Urine Clarity Cloudy H Urine pH 5.0 Ur Specific [place] 1.019 Urine Protein Negative Urine Glucose (UA) Negative Urine Ketones Trace H Urine Occult Blood Small H Urine Nitrate Negative Urine Bilirubin Negative Urine Urobilinogen Less than 2 Ur Leukocyte Esterase Negative Urine RBC 11 H Urine WBC 4 Uric Acid Crystals Moderate H Urine Bacteria Rare H Urine Mucus Few H Micro UA Comment Cath-culture ind Urine Culture Comments Cath-cult indicated Blood Type Blood Type Recheck Antibody Screen 01/01/18 16:10 WBC RBC Hgb POC Hgb (Calc) Hct POC Hct MCV MCH MCHC RDW Plt Count MPV Neut % (Auto) Lymph % (Auto) [place] % (Auto) Eos % (Auto) Baso % (Auto) Neut # (Auto) Lymph # (Auto) [place] # (Auto) Eos # (Auto) Baso # (Auto) WBC Differential Differential Comment ESR Cancelled PT INR APTT Fibrinogen POC Sodium Sodium POC Potassium Potassium POC Chloride Chloride Carbon Dioxide Anion Gap POC BUN BUN Creatinine POC Creatinine Estimated GFR POC Glucose Random Glucose Calcium Total Creatine Kinase CK-MB (CK-2) CK-MB (CK-2) % Troponin I Vitamin B12 TSH Thyroxine (T4) Urine Color Urine Clarity Urine pH Ur Specific [place] Urine Protein Urine Glucose (UA) Urine Ketones Urine Occult Blood Urine Nitrate Urine Bilirubin Urine Urobilinogen Ur Leukocyte Esterase Urine RBC Urine WBC Uric Acid Crystals Urine Bacteria Urine Mucus Micro UA Comment Urine Culture Comments Blood Type Blood Type Recheck Antibody Screen Review/Management - Review/Management Daily Summary: imp mri no new cva labs neg inr only 1.8 needs 2-2.5 check mra if neg can dc as long as inr up oob PT no cva if feeling better could do hallpike or fu office and do this
[2018-01-02 07:29] LABS: INR 1.7 Ratio; Prothrombin Time 17.7 sec (9.8-11.6)
[2018-01-02] MEDS ORDERED: Gadobutrol PF 10 MMOL/10 ML Vial (for RAD) IV.SIG ONE (08:56)
--- NOTE | 2018-01-02 09:55 | MR ---
EXAM DATE: 01/02/2018 9:16 AM EDT AGE/SEX: 88 years / Female INDICATIONS: Dizziness. CLINICAL DATA: This is the patient's subsequent encounter. Patient reports that signs and symptoms h ave been present for 2 days and indicates a pain score of 0/10. MEDICAL/SURGICAL HISTORY: Hypertension. Carcinoma, breast. Mastectomy, left. COMPARISON: [facility] [place], MR HEAD W/O CONTRAST, 01/01/2018. . TECHNIQUE: 3D [id number] MRA was performed. Source images, multiplanar STS MIP, and 3D volum e MIP reconstructions were reviewed. FINDINGS: There is excellent visualization of the major intracranial arteries out to the second-order branch ve ssels. There is no evidence for aneurysm, vessel truncation or stenosis, and no evidence for vascula r malformation. CONCLUSION: 1. Negative MRA Cow ([place]) non contrast. Electronically signed by: Trevon Coffey MD 01/02/2018 9:53 AM EDT
--- NOTE | 2018-01-02 10:03 | MR ---
EXAM DATE: 01/02/2018 9:16 AM EDT AGE/SEX: 88 years / Female INDICATIONS: Stenosis. CLINICAL DATA: This is the patient's subsequent encounter. Patient reports that signs and symptoms h ave been present for 2 days and indicates a pain score of 0/10. MEDICAL/SURGICAL HISTORY: Hypertension. Carcinoma, breast. Mastectomy, left. COMPARISON: [facility], MRA CAROTIDS W CONTRAST, 11/11/2015. . TECHNIQUE: 10 ml Gadavist (gadobutrol) contrast infused MRA (single exam dose) of the extracranial circulation was performed using a neurovascular coil. Postprocessing was performed, including rotati ng sub-volume maximum intensity projections of each carotid artery, rotating full-volume maximum inte nsity projections of both carotid arteries, sagittal and coronal sliding thin-slab reformations of ea ch carotid artery, and left oblique sliding thin-slab reformation through the aortic arch to include the origin of the arch branch vessels. FINDINGS: Aortic Arch : The left common carotid and brachiocephalic arteries share a common origin. There is e ccentric plaque involving the proximal left subclavian artery distal to the origin proximal to the ve rtebral artery origin. This generates a 30% stenosis. This is better seen on the current study than t he prior study where motion artifact was an issue.. Right Carotid : The common carotid artery is intact. The carotid bulb has a normal configuration wi thout ulceration or narrowing. The internal carotid artery lumen is smooth without stenosis. The ex ternal carotid artery is intact. Left Carotid : An ulcerated plaque is seen involving the proximal ICA. This generates a 50% stenosis utilizing NASCET criteria. This is unchanged from the prior exam. The more cephalad portion of the e xtracranial ICA, ECA, and CCA are patent.. Vertebrals : The vertebral arteries have a symmetric diameter. No stenotic lesions are seen. CONCLUSION: 1. 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 2. Patent right carotid. 3. 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 4. Patent vertebral arteries. Percent stenosis is calculated using the diameter of the stenotic region over the diameter of the nor mal distal internal carotid artery Electronically signed by: Trevon Coffey MD 01/02/2018 10:02 AM [place]
--- NOTE | 2018-01-02 10:16 | P.PNIM ---
Subjective Interval history: in no acute distress. feels somewhat better today. has mild back pain. BP trend noted. family at the bedside. d/w the RN. Physical Exam Vital signs: Vital Signs 01/01/18 14:59 01/01/18 15:36 01/01/18 16:31 Temperature 97.9 F Pulse Rate 82 87 Respiratory Rate 18 14 Blood Pressure 193/95 H 196/93 H 195/87 H Pulse Oximetry 97 95 01/01/18 17:22 01/01/18 19:16 01/01/18 19:40 Temperature Pulse Rate 77 74 Respiratory Rate 14 18 Blood Pressure 152/70 H 152/59 H Pulse Oximetry 97 96 97 01/01/18 21:24 01/02/18 02:23 01/02/18 02:32 Temperature Pulse Rate 75 72 70 Respiratory Rate 18 20 18 Blood Pressure 169/74 H 183/84 H 178/81 H Pulse Oximetry 96 97 01/02/18 03:39 01/02/18 04:07 01/02/18 04:59 Temperature 98.5 F Pulse Rate 65 68 91 H Respiratory Rate 16 18 Blood Pressure 180/63 H 173/79 H Pulse Oximetry 98 98 01/02/18 05:24 01/02/18 06:12 01/02/18 07:09 Temperature Pulse Rate 79 76 77 Respiratory Rate 18 18 15 Blood Pressure 152/69 H 146/70 H 154/72 H Pulse Oximetry 95 96 Intake & Output 01/01/18 01/02/18 01/02/18 18:59 06:59 18:59 Intake Total 1000 / 1000 Output Total 1000 / 1000 Balance 0 / 0 Weight 72.3 kg Intake: IV 1000 / 1000 NS Inj 1,000 ML @ 84 mls/hr IV. 1000 / 1000 CONT .[id number] [facility] Rx#:[id number] Output: Urine Amount (Catheter) 1000 / 1000 3-way Urethral 1000 / 1000 - Constitutional no acute distress - Routine Respiratory Exam Present: CTA bilaterally - Routine Cardiovascular Exam Present: RRR - Routine Abdominal Exam Present: soft - Routine Extremities Exam Comments: no pedal edema. - Routine Neurological Exam Present: alert, oriented X3 - Urinary Catheter Management 3-way Urethral Cath placed during this visit: yes Reason for continuing: Hourly intake/output Insertion date: 01/01/18 Insertion time: 15:44 Results - Labs CBC & Chem 7: 01/01/18 15:10 01/01/18 15:10 Laboratory Results - last 24 hr 01/01/18 01/01/18 01/01/18 15:07 15:10 15:10 WBC 7.5 RBC 4.60 Hgb 14.2 POC Hgb (Calc) Hct 41.7 POC Hct MCV 90.7 MCH 30.9 MCHC 34.1 RDW 12.7 Plt Count 299 MPV 8.0 Neut % (Auto) 69.9 Lymph % (Auto) 20.4 [place] % (Auto) 8.3 H Eos % (Auto) 0.5 Baso % (Auto) 0.9 Neut # (Auto) 5.3 Lymph # (Auto) 1.5 [place] # (Auto) 0.6 Eos # (Auto) 0.0 Baso # (Auto) 0.1 WBC Differential . Differential Comment Auto diff final ESR PT 18.7 H INR 1.8 APTT 31.3 H Fibrinogen 367 POC Sodium Sodium POC Potassium Potassium POC Chloride Chloride Carbon Dioxide Anion Gap POC BUN BUN Creatinine POC Creatinine Estimated GFR POC Glucose 127 H Random Glucose Calcium Total Creatine Kinase CK-MB (CK-2) CK-MB (CK-2) % Troponin I C-Reactive Protein Vitamin B12 TSH Thyroxine (T4) Urine Color Urine Clarity Urine pH Ur Specific [place] Urine Protein Urine Glucose (UA) Urine Ketones Urine Occult Blood Urine Nitrate Urine Bilirubin Urine Urobilinogen Ur Leukocyte Esterase Urine RBC Urine WBC Uric Acid Crystals Urine Bacteria Urine Mucus Micro UA Comment Urine Culture Comments Blood Type Blood Type Recheck Antibody Screen 01/01/18 01/01/18 01/01/18 15:10 15:10 15:10 WBC RBC Hgb POC Hgb (Calc) 13.6 Hct POC Hct 40.0 MCV MCH MCHC RDW Plt Count MPV Neut % (Auto) Lymph % (Auto) [place] % (Auto) Eos % (Auto) Baso % (Auto) Neut # (Auto) Lymph # (Auto) [place] # (Auto) Eos # (Auto) Baso # (Auto) WBC Differential Differential Comment ESR PT INR APTT Fibrinogen POC Sodium 138 Sodium 139 POC Potassium 4.3 Potassium 4.2 POC Chloride 103 Chloride 107 Carbon Dioxide 25.0 Anion Gap 7 POC BUN 21 BUN 20 H Creatinine 0.80 POC Creatinine 0.7 Estimated GFR 68 L POC Glucose 129 H Random Glucose 129 H Calcium 8.5 Total Creatine Kinase 248 H CK-MB (CK-2) 3.7 H CK-MB (CK-2) % 1.5 Troponin I Less than 0.02 L C-Reactive Protein Vitamin B12 TSH Thyroxine (T4) Urine Color Urine Clarity Urine pH Ur Specific [place] Urine Protein Urine Glucose (UA) Urine Ketones Urine Occult Blood Urine Nitrate Urine Bilirubin Urine Urobilinogen Ur Leukocyte Esterase Urine RBC Urine WBC Uric Acid Crystals Urine Bacteria Urine Mucus Micro UA Comment Urine Culture Comments Blood Type A Negative Blood Type Recheck Required Antibody Screen Negative 01/01/18 01/01/18 01/01/18 15:10 15:10 16:05 WBC RBC Hgb POC Hgb (Calc) Hct POC Hct MCV MCH MCHC RDW Plt Count MPV Neut % (Auto) Lymph % (Auto) [place] % (Auto) Eos % (Auto) Baso % (Auto) Neut # (Auto) Lymph # (Auto) [place] # (Auto) Eos # (Auto) Baso # (Auto) WBC Differential Differential Comment ESR PT INR APTT Fibrinogen POC Sodium Sodium POC Potassium Potassium POC Chloride Chloride Carbon Dioxide Anion Gap POC BUN BUN Creatinine POC Creatinine Estimated GFR POC Glucose Random Glucose Calcium Total Creatine Kinase CK-MB (CK-2) CK-MB (CK-2) % Troponin I C-Reactive Protein Vitamin B12 516 TSH 0.885 Thyroxine (T4) 9.4 Urine Color Yellow Urine Clarity Cloudy H Urine pH 5.0 Ur Specific [place] 1.019 Urine Protein Negative Urine Glucose (UA) Negative Urine Ketones Trace H Urine Occult Blood Small H Urine Nitrate Negative Urine Bilirubin Negative Urine Urobilinogen Less than 2 Ur Leukocyte Esterase Negative Urine RBC 11 H Urine WBC 4 Uric Acid Crystals Moderate H Urine Bacteria Rare H Urine Mucus Few H Micro UA Comment Cath-culture ind Urine Culture Comments Cath-cult indicated Blood Type Blood Type Recheck Antibody Screen 01/01/18 01/02/18 01/02/18 16:10 05:38 09:17 WBC RBC Hgb POC Hgb (Calc) Hct POC Hct MCV MCH MCHC RDW Plt Count MPV Neut % (Auto) Lymph % (Auto) [place] % (Auto) Eos % (Auto) Baso % (Auto) Neut # (Auto) Lymph # (Auto) [place] # (Auto) Eos # (Auto) Baso # (Auto) WBC Differential Differential Comment ESR Cancelled PT 17.7 H INR 1.7 APTT Fibrinogen POC Sodium Sodium POC Potassium Potassium POC Chloride Chloride Carbon Dioxide Anion Gap POC BUN BUN Creatinine POC Creatinine Estimated GFR POC Glucose Random Glucose Calcium Total Creatine Kinase CK-MB (CK-2) CK-MB (CK-2) % Troponin I C-Reactive Protein Less than 0.29 Vitamin B12 TSH Thyroxine (T4) Urine Color Urine Clarity Urine pH Ur Specific [place] Urine Protein Urine Glucose (UA) Urine Ketones Urine Occult Blood Urine Nitrate Urine Bilirubin Urine Urobilinogen Ur Leukocyte Esterase Urine RBC Urine WBC Uric Acid Crystals Urine Bacteria Urine Mucus Micro UA Comment Urine Culture Comments Blood Type Blood Type Recheck Antibody Screen - Imaging Impressions Head MRI 01/01/18 00:00 CONCLUSION: 1. No evidence of acute infarction. 2. Chronic ischemic change, stable from 2016. Chest X-Ray 01/01/18 15:11 CONCLUSION: No acute intrathoracic disease. Head CT 01/01/18 15:11 CONCLUSION: 1. Very small focal loss of weaver-white matter differentiation in the right parietal high convexities. Given lack of recent comparisons, this may be subacute/chronic in etiology. MRI examination may be performed for further evaluation if clinically warranted. 2. Otherwise, no acute intracranial abnormality. Specifically, no evidence for intracranial hemorrhage. Report was personally called to Dr. Madison at 1525 PM. Head MRA 01/02/18 00:00 CONCLUSION: 1. Negative MRA Cow ([place]) non contrast. Neck MRA 01/02/18 00:00 CONCLUSION: 1. 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 2. Patent right carotid. 3. 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 4. Patent vertebral arteries. Percent stenosis is calculated using the diameter of the stenotic region over the diameter of the normal distal internal carotid artery Assessment and Plan - Plan A/P - possible TIA with history of stroke- neurology consult appreciated-MRI brain with no acute CVA. resumed coumadin with PT/INR monitoring. awaiting PT evaluation. -elevated BP's; with no history of hypertension; will monitor for now with IV Vasotec prn. will consider scheduled BP meds if BP remains elevated. -DVT prophylaxis; on Couamdin. Discharge Planning: dc planning; within the next 24 hrs- pending BP trend and PT evaluation.
--- NOTE | 2018-01-02 14:00 | P.DCO ---
- Physical Therapy Order: Evaluate and treat - Home Health Nursing Order: Signs/symptoms of disease process, Nursing assessment with vital signs - Certification I have seen patient Stephany Taylor on 01/02/18. My clinical findings support the need for the requested home health care services because: Limited mobility due to disease progression I certify that my clinical findings support that this patient is homebound because: Unsteady gait/balance
[2018-01-02] MEDS: amLODIPine 5 MG Tablet PO SCH (15:59)
--- NOTE | 2018-01-02 19:44 | ECG ---
Date Performed: 01/02/2018 Time Performed: 05:01:21 PTAGE: 88 years EKG: Sinus rhythm WITH SINUS ARRHYTHMIA NONSPECIFIC ST & T-WAVE ABNORMALITY BORDERLINE ECG PREVIOUS TRACING : 07/20/[address] abnormalitites are more prominent compared to the prior EKG Clinical correlation is recommended DOCTOR: Tristan Anderson Interpretating Date/Time 01/02/2018 19:43:49
[2018-01-03] MEDS: Sod Chloride 0.9% Inj 1,000 ML IV.CONT SCH (06:24)
--- NOTE | 2018-01-03 07:09 | P.PNNEU ---
Subjective Subjective Comments: No acute events reported feels a lot better Active Medications: Active Medications Acetaminophen (Tylenol) 500 mg PO Q6H PRN PRN Reason: LOREDO, Fever Last Admin: 01/02/18 03:55 Dose: 500 mg Amlodipine Besylate (Norvasc) 5 mg PO DAILY [facility] Last Admin: 01/02/18 15:59 Dose: 5 mg Atorvastatin Calcium (Lipitor) 40 mg PO DAILY [facility] Last Admin: 01/02/18 13:53 Dose: 40 mg Clonidine HCl (Catapres) 0.1 mg PO Q6H PRN PRN Reason: SBP>160, DBP>90 Enalaprilat (Vasotec Inj) 1.25 mg IV.PUSH Q8H PRN PRN Reason: SBP > 180 or DBP > 110 Last Admin: 01/02/18 02:32 Dose: 1.25 mg Sodium Chloride (Ns Inj) 1,000 mls @ 84 mls/hr IV.CONT .[id number] [facility] Last Admin: 01/03/18 06:24 Dose: 84 mls/hr Patient Medication Teaching (Coumadin Booklet) 1 each OTHER ONCE [facility] Warfarin Sodium (Coumadin) 4 mg PO EVERY OTHER DAY@1600 [facility] Warfarin Sodium (Coumadin) 3 mg PO EVERY OTHER DAY@1600 [facility] Allergies/Adverse Reactions: Allergies Allergy/AdvReac Type Severity Reaction Status Date / Time iodine Allergy Severe Swelling Verified 01/01/18 15:40 potassium iodide Allergy Severe Swelling Verified 01/01/18 15:40 povidone-iodine Allergy Severe Swelling Verified 01/01/18 15:40 sodium iodide Allergy Severe Swelling Verified 01/01/18 15:40 sodium iodide Allergy Severe Swelling Verified 01/01/18 15:40 Physical Exam Vital signs: Vital Signs 01/02/18 07:09 01/02/18 08:00 01/02/18 10:48 Temperature Pulse Rate 77 80 73 Respiratory Rate 15 18 Blood Pressure 154/72 H 151/67 H Pulse Oximetry 95 01/02/18 11:45 01/02/18 13:30 01/02/18 14:19 Temperature 98.7 F Pulse Rate 84 75 Respiratory Rate 19 21 Blood Pressure 164/70 H 133/65 144/75 H Pulse Oximetry 94 L 97 95 01/02/18 16:00 01/02/18 17:00 01/02/18 18:00 Temperature 98.2 F 98 F Pulse Rate 73 70 78 Respiratory Rate 18 18 Blood Pressure 161/82 H 133/77 Pulse Oximetry 97 93 L 01/02/18 18:15 01/02/18 19:00 01/02/18 20:00 Temperature 98.4 F Pulse Rate 74 82 72 Respiratory Rate 20 Blood Pressure 137/70 Pulse Oximetry 95 01/02/18 21:00 01/02/18 22:00 01/02/18 23:00 Temperature Pulse Rate 72 68 67 Respiratory Rate Blood Pressure Pulse Oximetry 01/03/18 00:00 01/03/18 01:00 01/03/18 02:00 Temperature 98.1 F Pulse Rate 69 74 60 Respiratory Rate 20 Blood Pressure 145/69 H Pulse Oximetry 95 01/03/18 03:00 01/03/18 04:00 01/03/18 05:00 Temperature 98.3 F Pulse Rate 72 76 68 Respiratory Rate 20 Blood Pressure 154/85 H Pulse Oximetry 97 01/03/18 06:00 Temperature Pulse Rate 80 Respiratory Rate Blood Pressure Pulse Oximetry Intake & Output 01/02/18 01/03/18 01/03/18 18:59 06:59 18:59 Intake Total 1240 / 1240 1480 / 1480 Output Total 1200 / 1200 2650 / 2650 Balance 40 / 40 -1170 / -1170 Intake: IV 1000 / 1000 1000 / 1000 NS Inj 1,000 ML @ 84 mls/hr IV. 1000 / 1000 1000 / 1000 CONT .[id number] [facility] Rx#:[id number] Oral 240 / 240 480 / 480 Output: Urine 2650 / 2650 Urine Amount (Catheter) 1200 / 1200 Indwelling Urethral Catheter 1200 / 1200 Narrative: awake alert nl speech nad - Urinary Catheter Management 3-way Urethral Cath placed during this visit: yes Reason for continuing: Hourly intake/output Insertion date: 01/01/18 Insertion time: 15:44 Indwelling Urethral Catheter Cath placed during this visit: no Objective Laboratory Results - last 24 hr 01/02/18 01/02/18 01/02/18 05:38 09:17 09:17 ESR 11 PT 17.7 H INR 1.7 C-Reactive Protein Less than 0.29 Microbiology 01/01/18 16:05 Urine Culture - Preliminary Catheterized Urine No growth in 24 hours Review/Management - Review/Management Daily Summary: imp mri no new cva labs neg inr only 1.8 needs 2-2.5 check mra if neg can dc as long as inr up oob PT no cva if feeling better could do hallpike or fu office and do this ---- 01/03/18 doing fine friend this week fu office needs inr>2.0 missed dose 01/01 would give higher dose tonicght if inr still low this am
[2018-01-03 08:00] LABS: INR 1.8 Ratio; Prothrombin Time 17.8 sec (9.8-11.6)
[2018-01-03] MEDS: amLODIPine 5 MG Tablet PO SCH (09:13)
[2018-01-03] MEDS ORDERED: amLODIPine 5 MG Tablet PO ONE (09:41)
--- NOTE | 2018-01-03 09:42 | P.DS ---
Date of admission: 01/01/18 17:16 Primary care physician: Ernesto Griffiths MD Brief History from admission: patient is a87 y/o female with history of CVA who presented to ER with fatigue and dizziness. she says that she's normally active but she has these episodes of extreme fatigue from time to time. she says that had ' another episode' last night. she says that she was lightheaded this morning. she denies any new focal weakness or slurred speech. she denies any fever, chills, headache, chest pain or urinary complaints. DS: Diagnosis - Discharge Diagnosis (1) TIA (transient ischemic attack) Status: Acute (2) Hypertension Status: Acute DS: Medications - Discharge Medications Prescriptions: amlodipine [Norvasc] 10 mg PO DAILY #30 tab lisinopril-hydrochlorothiazide 1 tab PO DAILY #30 tab DS: Summary Hospital Course: Clinical update at discharge. Patient feels much better today and she wants to go home. No new motor deficit. She improved and feels baseline. Blood pressure however was noted elevated and medications adjusted. Blood pressure is better controlled and the patient is not symptomatic. Discharge home On admission with possible TIA, patient with history of stroke- neurology consult appreciated-MRI brain with no acute CVA. resumed coumadin with PT/INR monitoring. -elevated BP's; with no history of hypertension; will monitor for now with IV Vasotec prn. Patient was started on amlodipine, lisinopril and hydrochlorothiazide combo. Blood pressure is better controlled. Discharge home in stable condition to follow-up with PCP and consultants as outpatient -DVT prophylaxis; on Couamdin. - Time Spent with Patient Total time spent providing and/or coordinating discharge services: Greater than 30 minutes - Quality: VTE Deep Vein Thrombosis/Pulmonary Embolism Present on Admission: No Exam Vital signs: Vital Signs 01/02/18 10:48 01/02/18 11:45 01/02/18 13:30 Temperature Pulse Rate 73 84 Respiratory Rate 18 19 Blood Pressure 151/67 H 164/70 H 133/65 Pulse Oximetry 95 94 L 97 01/02/18 14:19 01/02/18 16:00 01/02/18 17:00 Temperature 98.7 F 98.2 F Pulse Rate 75 73 70 Respiratory Rate 21 18 Blood Pressure 144/75 H 161/82 H Pulse Oximetry 95 97 01/02/18 18:00 01/02/18 18:15 01/02/18 19:00 Temperature 98 F Pulse Rate 78 74 82 Respiratory Rate 18 Blood Pressure 133/77 Pulse Oximetry 93 L 01/02/18 20:00 01/02/18 21:00 01/02/18 22:00 Temperature 98.4 F Pulse Rate 72 72 68 Respiratory Rate 20 Blood Pressure 137/70 Pulse Oximetry 95 01/02/18 23:00 01/03/18 00:00 01/03/18 01:00 Temperature 98.1 F Pulse Rate 67 69 74 Respiratory Rate 20 Blood Pressure 145/69 H Pulse Oximetry 95 01/03/18 02:00 01/03/18 03:00 01/03/18 04:00 Temperature 98.3 F Pulse Rate 60 72 76 Respiratory Rate 20 Blood Pressure 154/85 H Pulse Oximetry 97 01/03/18 05:00 01/03/18 06:00 Temperature Pulse Rate 68 80 Respiratory Rate Blood Pressure Pulse Oximetry Intake & Output 01/02/18 01/03/18 01/03/18 18:59 06:59 18:59 Intake Total 1240 / 1240 1480 / 1480 Output Total 1200 / 1200 2650 / 2650 Balance 40 / 40 -1170 / -1170 Weight 68 kg Intake: IV 1000 / 1000 1000 / 1000 NS Inj 1,000 ML @ 84 mls/hr IV. 1000 / 1000 1000 / 1000 CONT .[id number] [facility] Rx#:[id number] Oral 240 / 240 480 / 480 Output: Urine 2650 / 2650 Urine Amount (Catheter) 1200 / 1200 Indwelling Urethral Catheter 1200 / 1200 Narrative: GENERAL: Very pleasant 88-year-old female in bed she appears to not acute distress. CARDIOVASCULAR: Regular rate and rhythm without murmurs, gallops, or rubs. RESPIRATORY: Breath sounds equal bilaterally. No accessory muscle use. GASTROINTESTINAL: Abdomen soft, non-tender, nondistended. MUSCULOSKELETAL: No cyanosis, or edema. BACK: Nontender without obvious deformity. No CVA tenderness. Results Procedures completed during hospitalization: No procedures Labs on day of discharge: Labs from last 24 hours 01/03/18 01/02/18 01/02/18 07:12 09:17 09:17 ESR 11 PT 17.8 H INR 1.8 C-Reactive Protein Less than 0.29 - Impressions ITS Impressions Head MRI 01/01/18 00:00 CONCLUSION: 1. No evidence of acute infarction. 2. Chronic ischemic change, stable from 2016. Chest X-Ray 01/01/18 15:11 CONCLUSION: No acute intrathoracic disease. Head CT 01/01/18 15:11 CONCLUSION: 1. Very small focal loss of weaver-white matter differentiation in the right parietal high convexities. Given lack of recent comparisons, this may be subacute/chronic in etiology. MRI examination may be performed for further evaluation if clinically warranted. 2. Otherwise, no acute intracranial abnormality. Specifically, no evidence for intracranial hemorrhage. Report was personally called to Dr. Madison at 1525 PM. Head MRA 01/02/18 00:00 CONCLUSION: 1. Negative MRA Cow ([place]) non contrast. Neck MRA 01/02/18 00:00 CONCLUSION: 1. 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 2. Patent right carotid. 3. 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 4. Patent vertebral arteries. Percent stenosis is calculated using the diameter of the stenotic region over the diameter of the normal distal internal carotid artery Discharge Plan - Discharge Disposition Patient Disposition: W/Home Health Service - Discharge Condition Condition: Stable - Discharge Order Discharge Orders: Discharge Order (Routine); Ordered 01/03/18 Ordered By: Candida Garcia - Discharge Details Anticipated Discharge Date: 01/03/18 - Physicians Team Primary Care Provider: Ernesto Griffiths Attending Provider: Candida Garcia Other Providers: Alina Fuller
[2018-01-03] MEDS ORDERED: Lisinopril 5 MG Tablet PO ONE (11:20)
[2018-01-03] MEDS ORDERED: hydroCHLOROthiazide 25 MG Tablet PO ONE (12:15)
[2018-01-03] MEDS ORDERED: Lisinopril 10 MG Tablet PO ONE (12:15)
[2018-01-03] MEDS: Acetaminophen 500 MG Tablet PO PRN (13:46)
[2018-01-03] MEDS ORDERED: Lisinopril 5 MG Tablet PO SCH (21:00)
[2018-01-04] MEDS ORDERED: Lisinopril 10 MG Tablet PO SCH (09:00)
[2018-01-04] MEDS ORDERED: amLODIPine 10 MG Tablet PO SCH (09:00)
== END 2018-01-03 15:02 | disposition home health service (06) ==
LOC: HCIS 14:54 → NEPE 14:54 → NEDA 17:16 → INTOOBSV 17:16 → NEDH 01-02 02:13 → HCIS 01-02 14:07
PROVIDERS: ADMIT Hospitalist; ATTEND Hospitalist
DX: Z90.12 Acquired absence of left breast and nipple; Z79.899 Other long term (current) drug therapy; Z85.3 Personal history of malignant neoplasm of breast; I10 Essential (primary) hypertension; F41.9 Anxiety disorder, unspecified; Z86.73 Personal history of transient ischemic attack (TIA), and cerebral infarction without residual deficits; E78.5 Hyperlipidemia, unspecified; Z79.01 Long term (current) use of anticoagulants; G45.9 Transient cerebral ischemic attack, unspecified; I65.22 Occlusion and stenosis of left carotid artery; I70.8 Atherosclerosis of other arteries